=== PATIENT | male | born 1950 | race Caucasian/White ===

== ENCOUNTER → 2016-06-06 | Outpatient (CLI) | payer OTHER ==
[2016-06-06 17:02] LABS: Blood Urea Nitrogen 27 mg/dL (9-20); Non-African American GFR(MDRD) >60 (>60 ml/min/1.73 sqM)
--- NOTE | 2016-06-07 07:44 | CT ---
CT CHEST FOR PULMONARY EMBOLISM. EXAMINATION TYPE: CT angio chest DATE OF EXAM: 06/06/2016 6:04 PM INDICATION: Pt states of sob and chest pain. CT DLP: 404.9 mGycm, Automated exposure control for dose reduction was used. CONTRAST: Patient injected with 90 mL of Omnipaque 300. COMPARISON: NONE TECHNIQUE: CT of the chest is performed on a spiral scan at 2 mm thick sections. Study is performed with intravenous contrast timed for evaluation for pulmonary embolism. This will limit additional po rtions of the evaluation. 3-D MIP images reconstructed by the technologist are reviewed on the compu ter in the coronal and sagittal planes. FINDINGS: No persistent filling defects are evident to suggest an acute pulmonary embolism. No mediastinal or hilar adenopathy enlarged by CT criteria is evident. The ascending aorta diameter at the level of the main pulmonary artery is 3.8 cm. The main pulmonary artery diameter at the bifur cation is 3.0 cm. There appears to be some pleural thickening or some pleural fat in the posterior medial lung apices b ilaterally. Emphysematous changes are evident. Some mild peribronchial thickening may be present cent rally no suspicious masses or infiltrates are evident. There may be an area of pneumonitis just above the left diaphragm. Coronary artery calcification is noted. There is some prominence of the descending thoracic aorta at the level of the right atrium measuring 3.7 cm transverse dimension. Limited CT sections were obtained through the upper abdomen. There is a calcified hypodense area in t he superior posterior left kidney could be calcified cyst. Consider additional evaluation with contra st CT abdomen. Renal mass is not excluded. IMPRESSIONS: 1. No acute pulmonary embolism. 2. Probable calcified cyst on the posterior superior left kidney. Given the calcification, underlying mass should be considered. Contrast CT abdomen is recommended for additional evaluation.
== END ==
LOC: RADCTMAIN 15:56
PROVIDERS: ATTEND Internal Medicine Critical Care Medicine
DX: R06.02 Shortness of breath (principal)
CPT/HCPCS: 82565; 84520; 71275; 36415; Q9967

== ENCOUNTER 2016-06-21 16:23 | Inpatient (IN) | payer MEDICARE ==
[2016-06-21] MEDS ORDERED: IPRATROPIUM 0.5 MG/2.5 ML NEBU INHALATION STA (17:13)
[2016-06-21] MEDS ORDERED: SODIUM CHLORIDE 0.9% 1,000 ML IV STA (17:13)
[2016-06-21] MEDS ORDERED: ALBUTEROL NEBULIZED 2.5 MG/3 ML INHALATION STA (17:13)
[2016-06-21] MEDS ORDERED: LEVOFLOXACIN 750MG-D5W PMX 750 MG in DEXTROSE/WATER 1 150ML.BAG IVPB STA (17:13)
[2016-06-21 17:14] LABS: Glucose,Whole Blood 100 mg/dL (75-99)
--- NOTE | 2016-06-21 17:19 | ED ---
General Adult HPI - General Chief complaint: Shortness of Breath Stated complaint: SOB Time Seen by Provider: 06/21/16 16:26 Source: patient, family, RN notes reviewed, old records reviewed Mode of arrival: EMS Limitations: no limitations - History of Present Illness Initial comments: This is a 65-year-old male ER for evaluation of severe shortness of breath. Patient suffers from COPD CHF and multiple cardiac comorbidities. Patient coming in with severe distress breath went to his family doctor who noted him earlier in the day, patient did have elevated fever, has noted fever and chills at home. Patient's doctor sent him over the the hospital for admission secondary to pneumonia. He had outpatient x-ray and his symptoms are progressing. Patient denies chest pain at this time. Denies recent travel history or known sick contacts, no recent hospitalization - Related Data Home Medications Medication Instructions Recorded Confirmed Albuterol Inhaler [Ventolin Hfa 1 - 2 puff INHALATION RT-QID PRN 06/21/16 Inhaler] Albuterol Nebulized [Ventolin 2.5 mg INHALATION RT-QID PRN 06/21/16 06/21/16 Nebulized] Amitriptyline HCl [Elavil] 50 mg PO HS 06/21/16 06/21/16 Aspirin 81 mg PO DAILY 06/21/16 06/21/16 Atorvastatin [Lipitor] 20 mg PO HS 06/21/16 06/21/16 Budesonide/Formoterol Fumarate 2 puff INHALATION RT-BID 06/21/16 06/21/16 [Symbicort 160-4.5 Mcg Inhaler] Cholecalciferol [Vitamin D3] 2,000 unit PO DAILY 06/21/16 06/21/16 Ergocalciferol (Vitamin D2) 50,000 unit PO FR 06/21/16 06/21/16 [Vitamin D2] Furosemide [Lasix] 20 mg PO DAILY 06/21/16 06/21/16 Insulin Aspart [NovoLOG Flexpen] See Protocol SQ AC-TID 06/21/16 06/21/16 Insulin Detemir [Levemir Flextouch] 28 units SQ HS 06/21/16 06/21/16 Lipase/Protease/Amylase [Creon Dr 1 cap PO QID 06/21/16 06/21/16 24,000 Units Capsule] Losartan Potassium [Cozaar] 50 mg PO DAILY 06/21/16 06/21/16 Metoprolol Tartrate [Lopressor] 50 mg PO BID 06/21/16 06/21/16 Multivitamins, Thera [Multivitamin 1 tab PO DAILY 06/21/16 06/21/16 (formulary)] Nitroglycerin Sl Tabs [Nitrostat] 0.4 mg SUBLINGUAL Q5M PRN 06/21/16 06/21/16 Omeprazole 20 mg PO AC-BRKFST 06/21/16 06/21/16 Pregabalin [Lyrica] 75 mg PO TID 06/21/16 06/21/16 Ranolazine [Ranexa] 1,000 mg PO BID 06/21/16 06/21/16 Tiotropium 18 Mcg/Puff [Spiriva] 1 cap INHALATION RT-DAILY 06/21/16 06/21/16 Zolpidem Tartrate [Ambien] 10 mg PO HS 06/21/16 06/21/16 amLODIPine [Norvasc] 10 mg PO HS 06/21/16 06/21/16 Allergies Allergy/AdvReac Type Severity Reaction Status Date / Time lisinopril Allergy Unknown Verified 06/21/16 17:08 metformin Allergy Unknown Verified 06/21/16 17:08 shellfish derived [Shellfish] Allergy Anaphylaxis Verified 06/21/16 17:08 theodur Allergy Hallucinati Uncoded 06/21/16 16:53 ons Review of Systems ROS Statement: Those systems with pertinent positive or pertinent negative responses have been documented in the HPI. ROS Other: All systems not noted in ROS Statement are negative. Past Medical History Past Medical History: Coronary Artery Disease (CAD), Heart Failure, COPD, Diabetes Mellitus, Hearing Disorder / Deafness, Hyperlipidemia, Hypertension, Pneumonia, Syncope Additional Past Medical History / Comment(s): RBBB, diastolic heart failure, AAA , pancreatic enzyme insufficiency, Agent [place] exposure, diabetic neuropathy History of Any Multi-Drug Resistant Organisms: None Reported Additional Past Surgical History / Comment(s): pancreatic cyst removal 2004, AAA repair 2005 Past Psychological History: Anxiety, PTSD Smoking Status: Former smoker Past Alcohol Use History: None Reported Past Drug Use History: None Reported General Exam Limitations: no limitations General appearance: alert, anxious, in distress, obese Head exam: Present: atraumatic, normocephalic, normal inspection Eye exam: Present: normal appearance, PERRL, EOMI. Absent: scleral icterus, conjunctival injection, periorbital swelling ENT exam: Present: normal exam, mucous membranes dry, mucous membranes moist Neck exam: Present: normal inspection. Absent: tenderness, meningismus, lymphadenopathy Respiratory exam: Present: respiratory distress, wheezes, accessory muscle use, decreased breath sounds, prolonged expiratory. Absent: rales, rhonchi, stridor Cardiovascular Exam: Present: regular rate, normal rhythm, normal heart sounds. Absent: systolic murmur, diastolic murmur, rubs, gallop, clicks GI/Abdominal exam: Present: soft, normal bowel sounds. Absent: distended, tenderness, guarding, rebound, rigid Extremities exam: Present: normal inspection, full ROM, normal capillary refill. Absent: tenderness, pedal edema, joint swelling, calf tenderness Back exam: Present: normal inspection Neurological exam: Present: alert, oriented X3, CN II-XII intact Psychiatric exam: Present: normal affect, normal mood Skin exam: Present: warm, dry, intact, normal color. Absent: rash Course Vital Signs 06/21/16 16:44 Temperature 98.9 F Pulse Rate 86 Respiratory 24 Rate Blood Pressure 114/67 O2 Sat by Pulse 89 L Oximetry - Reevaluation(s) Reevaluation #1: 06/21/16 17:44 Patient is improved with fever control symptom control EKG Findings - EKG Comments: EKG Findings:: EKG shows sinus rhythm rate of 85, NC 140, QRS 122, QTC 476 Medical Decision Making - Medical Decision Making 65 middle-ear for evaluation of shortness of breath severe shortness of breath up with family doctor for possible pneumonia Megan K by CHF and COPD. Patient be admitted for both pulmonary and cardiac observation, IV antibiotics breathing treatments and further monitoring of cardiopulmonary status - Lab Data Result diagrams: 06/21/16 16:55 06/21/16 16:55 Lab Results 06/21/16 06/21/16 06/21/16 Range/Units 16:55 16:55 16:55 WBC 19.3 H (3.8-10.6) k/uL RBC 4.70 (4.30-5.90) m/uL Hgb 14.6 (13.0-17.5) gm/dL Hct 43.8 (39.0-53.0) % MCV 93.2 (80.0-100.0) fL MCH 31.1 (25.0-35.0) pg MCHC 33.4 (31.0-37.0) g/dL RDW 14.1 (11.5-15.5) % Plt Count 209 (150-450) k/uL Neutrophils % 86 % Lymphocytes % 6 % Monocytes % 3 % Eosinophils % 1 % Basophils % 1 % Neutrophils # 16.5 H (1.3-7.7) k/uL Lymphocytes # 1.2 (1.0-4.8) k/uL Monocytes # 0.6 (0-1.0) k/uL Eosinophils # 0.2 (0-0.7) k/uL Basophils # 0.2 (0-0.2) k/uL PT 11.0 (9.0-12.0) sec INR 1.1 (<1.1) APTT 23.7 (22.0-30.0) sec Sodium 139 (137-145) mmol/L Potassium 4.3 (3.5-5.1) mmol/L Chloride 104 (98-107) mmol/L Carbon Dioxide 25 (22-30) mmol/L Anion Gap 10 mmol/L BUN 14 (9-20) mg/dL Creatinine 1.19 (0.66-1.25) mg/dL Est GFR (MDRD) Af Amer >60 (>60 ml/min/1.73 sqM) Est GFR (MDRD) Non-Af >60 (>60 ml/min/1.73 sqM) Glucose 104 H (74-99) mg/dL POC Glucose (mg/dL) (75-99) mg/dL POC Glu Heat Treat Inspector ID Calcium 8.9 (8.4-10.2) mg/dL Magnesium 1.7 (1.6-2.3) mg/dL Total Bilirubin 0.9 (0.2-1.3) mg/dL AST 18 (17-59) U/L ALT 41 (21-72) U/L Alkaline Phosphatase 84 (38-126) U/L Total Protein 6.1 L (6.3-8.2) g/dL Albumin 3.2 L (3.5-5.0) g/dL 06/21/16 Range/Units 17:12 WBC (3.8-10.6) k/uL RBC (4.30-5.90) m/uL Hgb (13.0-17.5) gm/dL Hct (39.0-53.0) % MCV (80.0-100.0) fL MCH (25.0-35.0) pg MCHC (31.0-37.0) g/dL RDW (11.5-15.5) % Plt Count (150-450) k/uL Neutrophils % % Lymphocytes % % Monocytes % % Eosinophils % % Basophils % % Neutrophils # (1.3-7.7) k/uL Lymphocytes # (1.0-4.8) k/uL Monocytes # (0-1.0) k/uL Eosinophils # (0-0.7) k/uL Basophils # (0-0.2) k/uL PT (9.0-12.0) sec INR (<1.1) APTT (22.0-30.0) sec Sodium (137-145) mmol/L Potassium (3.5-5.1) mmol/L Chloride (98-107) mmol/L Carbon Dioxide (22-30) mmol/L Anion Gap mmol/L BUN (9-20) mg/dL Creatinine (0.66-1.25) mg/dL Est GFR (MDRD) Af Amer (>60 ml/min/1.73 sqM) Est GFR (MDRD) Non-Af (>60 ml/min/1.73 sqM) Glucose (74-99) mg/dL POC Glucose (mg/dL) 100 H (75-99) mg/dL POC Glu Heat Treat Inspector ID Ezequiel Traylor Calcium (8.4-10.2) mg/dL Magnesium (1.6-2.3) mg/dL Total Bilirubin (0.2-1.3) mg/dL AST (17-59) U/L ALT (21-72) U/L Alkaline Phosphatase (38-126) U/L Total Protein (6.3-8.2) g/dL Albumin (3.5-5.0) g/dL - Radiology Data Radiology results: report reviewed (Chest x-ray positive for pneumonia CHF), image reviewed Critical Care Time Critical Care Time: Yes Total Critical Care Time: 31 Disposition Clinical Impression: Acute respiratory failure, Acute exacerbation of chronic obstructive airways disease, Community acquired pneumonia, Congestive heart failure, Hypoxia Disposition: ADMITTED IP TO THIS HOSP Condition: Serious Referrals: Bam Urrutia MD [Primary Care Provider] - 1-2 days
[2016-06-21 17:26] LABS: Basophils # (A) 0.2 k/uL (0-0.2); Basophils % (A) 1 %; CH 31.4; CHCM 33.9; Eosinophils # (A) 0.2 k/uL (0-0.7); Eosinophils % (A) 1 %; HCT 43.8 % (39.0-53.0); HDW 2.62; HGB 14.6 gm/dL (13.0-17.5); Luc # (Auto) 0.46; Luc % (Auto) 2; Lymphocytes # (A) 1.2 k/uL (1.0-4.8); Lymphocytes % (A) 6 %; MCH 31.1 pg (25.0-35.0); MCHC 33.4 g/dL (31.0-37.0); MCV 93.2 fL (80.0-100.0); Mean Platelet Volume 8.2; Monocytes # (A) 0.6 k/uL (0-1.0); Monocytes % (A) 3 %; Neutrophils # (A) 16.5 k/uL (1.3-7.7); Neutrophils % (A) 86 %; RDW 14.1 % (11.5-15.5); WBC 19.3 k/uL (3.8-10.6); WBC (Perox) 19.92
[2016-06-21 17:33] LABS: INR 1.1 (<1.1); Partial Thromboplastin Time 23.7 sec (22.0-30.0)
[2016-06-21 17:36] LABS: ALT 41 U/L (21-72); AST 18 U/L (17-59); Alkaline Phosphatase 84 U/L (38-126); Anion Gap 10 mmol/L; Blood Urea Nitrogen 14 mg/dL (9-20); Calcium 8.9 mg/dL (8.4-10.2); Carbon Dioxide 25 mmol/L (22-30); Chloride 104 mmol/L (98-107); Glucose 104 mg/dL (74-99); Magnesium 1.7 mg/dL (1.6-2.3); Non-African American GFR(MDRD) >60 (>60 ml/min/1.73 sqM); Potassium 4.3 mmol/L (3.5-5.1); Sodium 139 mmol/L (137-145); Total Bilirubin 0.9 mg/dL (0.2-1.3); Total Protein 6.1 g/dL (6.3-8.2)
[2016-06-21] MEDS ORDERED: PNEUMONIA PROTOCOL UTILIZED 1 EACH MISC PO PRN (17:41)
[2016-06-21 17:44] LABS: Creatine Kinase 28 U/L (55-170)
[2016-06-21 17:57] LABS: Creatine Kinase MB 0.8 ng/mL (0.0-2.4); Troponin I <0.012 ng/mL (0.000-0.034)
[2016-06-21] MEDS: SODIUM CHLORIDE 0.9% 1,000 ML IV SCH (18:05)
--- NOTE | 2016-06-21 18:31 | XR ---
EXAMINATION TYPE: XR chest 1V portable DATE OF EXAM: 06/21/2016 6:25 PM COMPARISON: NONE HISTORY: Short of breath TECHNIQUE: Single frontal view of the chest is obtained. FINDINGS: There is mild interstitial infiltrate in the right lower lobe. There is no heart failure. Heart size is normal. There are chest leads. There is no evidence of pleural effusion. IMPRESSION: There is a new patchy infiltrate in the right lower lobe compared to the CT scan of 2016. No heart failure. Normal heart.
[2016-06-21] MEDS: IPRATROPIUM-ALBUTEROL 3 ML NEB INHALATION SCH (19:03)
[2016-06-21 19:22] VITALS: BMI 27.6
[2016-06-21 20:05] LABS: Hemoglobin A1C 7.8 % (4.2-6.1)
[2016-06-21] MEDS: LIPASE 5,000/PROTEASE 17,000/AMYLASE 27,0000 PO SCH (21:17)
[2016-06-21] MEDS: INSULIN LISPRO (humaLOG) 300 UNIT/3 ML VIAL SQ SCH (21:17)
[2016-06-21] MEDS: PREGABALIN 75 MG CAP PO SCH (21:17)
[2016-06-21] MEDS: RANOLAZINE 500 MG TAB.ER.12H PO SCH (21:17)
[2016-06-21 21:19] LABS: Glucose,Whole Blood 136 mg/dL (75-99)
[2016-06-21] MEDS: amLODIPine 10 MG TAB PO SCH (23:56)
[2016-06-21] MEDS: AMITRIPTYLINE HCL 50 MG TAB PO SCH (23:56)
[2016-06-21] MEDS: METOPROLOL TARTRATE 50 MG TAB PO SCH (23:56)
[2016-06-21] MEDS: ATORVASTATIN 20 MG TAB PO SCH (23:57)
[2016-06-21] MEDS: ZOLPIDEM 10 MG TAB PO SCH (23:57)
[2016-06-22] MEDS: SODIUM CHLORIDE 0.9% 1,000 ML IV SCH ×3 (04:45→23:32)
--- NOTE | 2016-06-22 07:16 | XR ---
EXAMINATION TYPE: XR chest 2V DATE OF EXAM: 06/22/2016 7:08 AM COMPARISON: Chest x-ray from yesterday. HISTORY: Pneumonia progress study TECHNIQUE: Frontal and lateral views of the chest are obtained. FINDINGS: There is chronic parenchymal change with persistent right basilar opacity felt improved. No new focal airspace opacity, pleural effusion, or pneumothorax is seen bilaterally. The cardiac delicia houette size is within normal limits. The osseous structures are intact. IMPRESSION: Chronic parenchymal change with improving but persistent right basilar infiltrate, no ne w infiltrate is seen.
[2016-06-22 07:57] LABS: Glucose,Whole Blood 179 mg/dL (75-99)
[2016-06-22] MEDS: LOSARTAN 50 MG TAB PO SCH (07:59)
[2016-06-22] MEDS: ASPIRIN 81 MG CHEW PO SCH (07:59)
[2016-06-22] MEDS: PREGABALIN 75 MG CAP PO SCH ×3 (07:59→21:34)
[2016-06-22] MEDS: RANOLAZINE 500 MG TAB.ER.12H PO SCH ×2 (07:59→21:34)
[2016-06-22] MEDS: FUROSEMIDE 20 MG TAB PO SCH (07:59)
[2016-06-22] MEDS: PANTOPRAZOLE 40 MG TABLET PO SCH (07:59)
[2016-06-22] MEDS: ENOXAPARIN 40 MG/0.4 ML SYRINGE SQ SCH (07:59)
[2016-06-22] MEDS: INSULIN LISPRO (humaLOG) 300 UNIT/3 ML VIAL SQ SCH ×4 (08:02→21:33)
[2016-06-22] MEDS: SYMBICORT 160-4.5 MCG INHALER INHALATION SCH ×2 (08:09→19:09)
[2016-06-22] MEDS: IPRATROPIUM-ALBUTEROL 3 ML NEB INHALATION SCH ×4 (08:09→19:10)
[2016-06-22] MEDS: TIOTROPIUM 18 MCG/PUFF INHALER INHALATION SCH (08:09)
[2016-06-22] MEDS ORDERED: CREON 24,000 UNITS PO PRN (08:40)
[2016-06-22] MEDS ORDERED: IBUPROFEN 600 MG TAB PO SCH (09:00)
[2016-06-22] MEDS: LIPASE 5,000/PROTEASE 17,000/AMYLASE 27,0000 PO SCH (09:59)
[2016-06-22 12:00] LABS: Glucose,Whole Blood 269 mg/dL (75-99)
[2016-06-22] MEDS: CREON 24,000 UNITS PO SCH ×2 (12:20→17:47)
[2016-06-22] MEDS: METOPROLOL TARTRATE 50 MG TAB PO SCH ×2 (12:21→23:32)
[2016-06-22] MEDS: CHOLECALCIFEROL 1,000 UNIT TAB PO SCH (12:21)
[2016-06-22] MEDS ORDERED: IBUPROFEN 600 MG TAB PO PRN (12:25)
--- NOTE | 2016-06-22 12:49 | P.CNPUL ---
History of Present Illness Consult date: 06/22/16 Reason for consult: COPD History of present illness: 65-year-old male patient, known history of COPD, whereas been followed up in our office on a routine basis regarding his COPD and maintained on a combination of Spiriva, Symbicort and Proventil rescue inhaler. The patient was recently seen by Dr. Serrano and he was told that his condition was stable. The day following his evaluation, the patient spiked a fever of 103 and he woke up any shaky and having cold chills. Following that he started having some minimal cough and progressive shortness of breath. He was seen at Dr. Hair's office where he was found to have a pulse ox in the low 80s and that point an ambulance was called and the patient got moved to the emergency department at [facility] for further evaluation and treatment. Chest x-ray confirmed the presence of right lung pneumonia. The patient was given a dose of Levaquin in the emergency department. He is already feeling better this morning. He is white cell count was elevated at 19.3. His subsequent chest x- ray from today shows improving but persistent right basilar pulmonary infiltrate and there is no new abnormalities seen. No change in mental status. No hemoptysis. He is an ex-smoker. No chest pain. No swelling lower extremities. No travel history. No sick contacts. Sputum Gram stain and cultures to follow. Influenza screen was negative. Review of Systems further review of system was done and the positive findings are almost above in history of present illness Past Medical History Past Medical History: Coronary Artery Disease (CAD), Heart Failure, COPD, Diabetes Mellitus, Hearing Disorder / Deafness, Hyperlipidemia, Hypertension, Pneumonia, Syncope Additional Past Medical History / Comment(s): COPD moderate in severity, coronary artery disease with nonocclusive disease based on previous cardiac catheterization, diabetes mellitus, abdominal aortic aneurysm that has been repaired surgically at [facility] in [place], diabetic peripheral neuropathy, diabetes mellitus maintained on insulin outpatient basis, hypertension, hyperlipidemia, hearing impairment, CHF with diastolic dysfunction , right bundle branch block pattern on his EKG, exposure to agent orange, 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 History of Any Multi-Drug Resistant Organisms: None Reported Additional Past Surgical History / Comment(s): pancreatic cyst removal 2004, AAA repair 2005 Past Anesthesia/Blood Transfusion Reactions: No Reported Reaction Past Psychological History: Anxiety, PTSD Smoking Status: Former smoker Past Alcohol Use History: None Reported Past Drug Use History: None Reported Medications and Allergies Home Medications Medication Instructions Recorded Confirmed Type Albuterol Inhaler [Ventolin Hfa 1 - 2 puff INHALATION RT-QID PRN 06/21/16 History Inhaler] Albuterol Nebulized [Ventolin 2.5 mg INHALATION RT-QID PRN 06/21/16 06/21/16 History Nebulized] Amitriptyline HCl [Elavil] 50 mg PO HS 06/21/16 06/21/16 History Aspirin 81 mg PO DAILY 06/21/16 06/21/16 History Atorvastatin [Lipitor] 20 mg PO HS 06/21/16 06/21/16 History Budesonide/Formoterol Fumarate 2 puff INHALATION RT-BID 06/21/16 06/21/16 History [Symbicort 160-4.5 Mcg Inhaler] Cholecalciferol [Vitamin D3] 2,000 unit PO DAILY 06/21/16 06/21/16 History Ergocalciferol (Vitamin D2) 50,000 unit PO FR 06/21/16 06/21/16 History [Vitamin D2] Furosemide [Lasix] 20 mg PO DAILY 06/21/16 06/21/16 History Insulin Aspart [NovoLOG Flexpen] See Protocol SQ AC-TID 06/21/16 06/21/16 History Insulin Detemir [Levemir Flextouch] 28 units SQ HS 06/21/16 06/21/16 History Lipase/Protease/Amylase [Sergio Dr 1 cap PO QID 06/21/16 06/21/16 History 24,000 Units Capsule] Losartan Potassium [Cozaar] 50 mg PO DAILY 06/21/16 06/21/16 History Metoprolol Tartrate [Lopressor] 50 mg PO BID 06/21/16 06/21/16 History Multivitamins, Thera [Multivitamin 1 tab PO DAILY 06/21/16 06/21/16 History (formulary)] Nitroglycerin Sl Tabs [Nitrostat] 0.4 mg SUBLINGUAL Q5M PRN 06/21/16 06/21/16 History Omeprazole 20 mg PO AC-BRKFST 06/21/16 06/21/16 History Pregabalin [Lyrica] 75 mg PO TID 06/21/16 06/21/16 History Ranolazine [Ranexa] 1,000 mg PO BID 06/21/16 06/21/16 History Tiotropium 18 Mcg/Puff [Spiriva] 1 cap INHALATION RT-DAILY 06/21/16 06/21/16 History Zolpidem Tartrate [Ambien] 10 mg PO HS 06/21/16 06/21/16 History amLODIPine [Norvasc] 10 mg PO HS 06/21/16 06/21/16 History Allergies Allergy/AdvReac Type Severity Reaction Status Date / Time lisinopril Allergy Unknown Verified 06/21/16 17:08 metformin Allergy Unknown Verified 06/21/16 17:08 shellfish derived [Shellfish] Allergy Anaphylaxis Verified 06/21/16 17:08 theodur Allergy Hallucinati Uncoded 06/21/16 16:53 ons Physical Exam Vitals: Vital Signs Temp Pulse Pulse Resp BP BP Pulse Ox 06/22/16 12:07 80 06/22/16 12:00 72 06/22/16 08:20 84 06/22/16 08:13 80 06/22/16 07:00 97.6 F 86 20 126/74 92 L 06/21/16 23:00 98.7 F 88 18 140/77 94 L 06/21/16 19:20 92 06/21/16 19:04 88 06/21/16 18:53 98.4 F 85 17 115/68 91 L 06/21/16 18:07 98.6 F 87 18 98/62 92 L Intake and Output 06/21/16 06/22/16 06/22/16 22:59 06:59 14:59 Intake Total 100 240 Balance 100 240 Intake: Amount of Fluid Infused ( 100 ml) Oral 240 Other: Voiding Method Toilet # Voids 1 3 Weight 95 kg 135 kg Head exam was generally normal. There was no scleral icterus or corneal arcus. Mucous membranes were moist.Neck was supple and without jugular venous distension, thyromegaly, or carotid bruits. Carotids were easily palpable bilaterally. There was no adenopathy. Lung sounds are diminished bilaterally along with some minimal expiratory wheezes and crackles in the right lung base.Cardiac exam revealed the PMI to be normally situated and sized. The rhythm was regular and no extrasystoles were noted during several minutes of auscultation. The first and second heart sounds were normal and physiologic splitting of the second heart sound was noted. There were no murmurs, rubs, clicks, or gallops.Abdominal exam revealed normal bowel sounds. The abdomen was soft, non-tender, and without masses, organomegaly, or appreciable enlargement of the abdominal aorta.Examination of the extremities revealed easily palpable radial, femoral and pedal pulses. There was no cyanosis, clubbing or edema. Results - Laboratory Findings CBC and BMP: 06/21/16 16:55 06/21/16 16:55 PT/INR, D-dimer PT 11.0 sec (9.0-12.0) 06/21/16 16:55 INR 1.1 (<1.1) 06/21/16 16:55 Abnormal lab findings: Abnormal Labs 06/21/16 06/21/16 06/22/16 18:53 20:59 07:23 POC Glucose (mg/dL) 136 H 179 H Hemoglobin A1c 7.8 H 06/22/16 11:57 POC Glucose (mg/dL) 269 H Hemoglobin A1c - Diagnostic Findings Chest x-ray: image reviewed Assessment and Plan Plan: Assessment 1 acute community acquired right lower lobe pneumonia 2 COPD exacerbation secondary to above 3 acute febrile illness secondary to above 4 leukocytosis, secondary to above 5 coronary artery disease 6 diabetes mellitus 7 hypertension 8 hyperlipidemia 9 aortic aneurysm that has been repaired surgically Plan Continue with IV Levaquin. Obtain sputum Gram stain and culture. Repeat chest x-ray in a.m. Continue bronchodilators. Monitor white cell count. Monitor blood cultures. We'll continue to follow. Condition is stable.
[2016-06-22] MEDS: LEVOFLOXACIN 750MG-D5W PMX 750 MG in DEXTROSE/WATER 1 150ML.BAG IVPB SCH (13:25)
[2016-06-22 17:40] LABS: Glucose,Whole Blood 255 mg/dL (75-99)
[2016-06-22 21:12] LABS: Glucose,Whole Blood 304 mg/dL (75-99)
--- NOTE | 2016-06-22 21:13 | HP ---
DATE OF SERVICE: 06/22/2016 DATE OF ADMISSION: 06/21/2016 CHIEF COMPLAINT: Difficulty in breathing. HISTORY OF PRESENT ILLNESS: Mr. Paul is a 65-year-old male with a past medical history of coronary artery disease, COPD, diabetes mellitus, hypertension, hyperlipidemia, who was admitted to the hospital for worsening shortness of breath. The patient was seen at Dr. Urrutia's office yesterday, when he was complaining of difficulty in breathing and his pulse ox was found to be in the lower 80s. He was sent into the ED for further evaluation and treatment. Patient did get a chest x-ray in the ED which confirmed right basilar lung infiltrate. He is being currently treated for pneumonia. Patient states that he has had significant improvement in his symptoms of difficulty in breathing since coming into the hospital. The patient denies having any cough or chest pain. Denied having any fevers. Patient did smoke for more than 30 years but quit 15 years back. He has gold stage II COPD. No history of sick contacts or recent travel. REVIEW OF SYSTEMS: All 13 review of systems are done and negative except for ones mentioned in the HPI. PAST MEDICAL HISTORY: Significant for coronary artery disease, COPD, diabetes mellitus, hypertension, hyperlipidemia. ALLERGIES: LISINOPRIL, METFORMIN, SHELLFISH, THEODUR. HOME MEDICATIONS: 1. Albuterol nebulizations. 2. Symbicort 160/4.5, 2 puffs b.i.d. 3. Multivitamin. 4. Lantus 8 units at bedtime. 5. Vitamin D2, 50,000 units once a week. 6. Vitamin D3, 2000 units p.o. daily. 7. Amlodipine 10 mg p.o. bedtime. 8. Ambien 10 mg p.o. bedtime. 9. Lipitor 20 mg p.o. bedtime. 10. Elavil 50 mg p.o. bedtime. 11. Lyrica 7.5 mg daily. 12. Lopressor 50 mg p.o. b.i.d. 13. NovoLog sliding scale. 14. Omeprazole 20 mg with breakfast. 15. Lasix 20 mg p.o. daily. 16. Aspirin 81 mg p.o. daily. 17. Xanax 1000 mg p.o. b.i.d. 18. Losartan 50 mg p.o. daily. 19. Creon 1 capsule p.o. q.i.d. 20. Nitrostat 0.4 mg sublingual tablets every 5 minutes p.r.n. for chest pain. SOCIAL HISTORY: Former smoker, quit 15 years back. Alcohol occasional use. FAMILY HISTORY: Positive for hypertension. PAST SURGICAL HISTORY: Positive for pancreatic cyst removal in 2004, AAA repair in 2005. On examination, patient's vitals are temperature 97, heart rate 83, respirations 20, blood pressure 190/73, saturating at 96% on room air. GENERAL EXAMINATION: Patient appears to be in no acute distress. HEAD: Atraumatic, normocephalic. EYES: Pupils equal, reactive to light. NECK: No JVD. No lymph node enlargement. HEART: S1 and S2 heard. LUNGS: Bilateral breath sounds are positive. A few coarse breath sounds heard. No crackles. GI: Abdomen is soft, nontender. Bowel sounds are positive. EXTREMITIES: No edema. No clubbing. GLOBAL REGULATORY LEAD: Alert, awake, oriented x3. No focal neurological deficits. PSYCHIATRIC: Appropriate mood and affect. SKIN: No rashes. MUSCULOSKELETAL: No joint swelling or deformity. Patient's labs from yesterday, white count of 19.3, hemoglobin 14.6, platelets 209. Sodium 139, potassium 4.3, chloride 104, bicarb 25, BUN 14, creatinine 1.19, hemoglobin A1c of 7.8. AST 18, ALT 41, albumin 3.2. Negative for influenza. The patient had a chest x-ray showing right basilar infiltrate. ASSESSMENT AND PLAN: 1. Community-acquired pneumonia, right lower lobe. 2. Acute exacerbation of chronic obstructive pulmonary disease secondary to #1. 3. History of coronary artery disease. 4. Type 2 diabetes mellitus, insulin-dependent, with A1c of 7.2. 5. Hypertension. 6. Hyperlipidemia. 7. History of aortic aneurysm repair in 2005. 8. History of pancreatic cyst removal in the past. PLAN: The plan is to continue the patient on bronchodilators, IV antibiotics, and IV steroids. Will follow up on the sputum Gram stain cultures. We will continue with the rest of his home medication regimen. Further recommendations to follow depending on the progress of the patient. [facility]ITAL[facility]
[2016-06-22] MEDS: ATORVASTATIN 20 MG TAB PO SCH (23:33)
[2016-06-22] MEDS: amLODIPine 10 MG TAB PO SCH (23:33)
[2016-06-22] MEDS: AMITRIPTYLINE HCL 50 MG TAB PO SCH (23:33)
[2016-06-22] MEDS: ZOLPIDEM 10 MG TAB PO SCH (23:35)
[2016-06-23 07:43] LABS: Glucose,Whole Blood 203 mg/dL (75-99)
[2016-06-23] MEDS: IPRATROPIUM-ALBUTEROL 3 ML NEB INHALATION SCH ×4 (07:53→19:08)
[2016-06-23] MEDS: SYMBICORT 160-4.5 MCG INHALER INHALATION SCH ×4 (07:55→19:17)
[2016-06-23] MEDS: TIOTROPIUM 18 MCG/PUFF INHALER INHALATION SCH ×2 (08:04→11:51)
--- NOTE | 2016-06-23 08:08 | XR ---
EXAMINATION TYPE: XR chest 1V DATE OF EXAM: 06/23/2016 6:52 AM COMPARISON: Prior chest x-ray 22 June 2016 HISTORY: Pneumonia, COPD, coronary artery disease TECHNIQUE: Single frontal view of the chest is obtained. FINDINGS: Airspace disease persists in the right lower lobe. No pneumothorax or evident effusion. Ca rdiac mediastinal silhouette, pulmonary vascularity and marli are stable. IMPRESSION: Correlate for pneumonia
[2016-06-23] MEDS: INSULIN LISPRO (humaLOG) 300 UNIT/3 ML VIAL SQ SCH ×4 (08:19→22:06)
[2016-06-23] MEDS: CREON 24,000 UNITS PO SCH ×3 (08:20→17:26)
[2016-06-23] MEDS: ASPIRIN 81 MG CHEW PO SCH (08:20)
[2016-06-23] MEDS: LOSARTAN 50 MG TAB PO SCH (08:20)
[2016-06-23] MEDS: ENOXAPARIN 40 MG/0.4 ML SYRINGE SQ SCH (08:20)
[2016-06-23] MEDS: PANTOPRAZOLE 40 MG TABLET PO SCH (08:20)
[2016-06-23] MEDS: FUROSEMIDE 20 MG TAB PO SCH (08:20)
[2016-06-23] MEDS: PREGABALIN 75 MG CAP PO SCH ×3 (08:21→22:07)
[2016-06-23] MEDS: RANOLAZINE 500 MG TAB.ER.12H PO SCH ×2 (08:21→22:07)
[2016-06-23 11:28] LABS: Aty Lym Flag Slight; CH 31.2; CHCM 33.6; HCT 39.8 % (39.0-53.0); HDW 2.65; MCH 30.5 pg (25.0-35.0); MCHC 32.7 g/dL (31.0-37.0); MCV 93.2 fL (80.0-100.0); Mean Platelet Volume 7.9; RBC 4.27 m/uL (4.30-5.90); WBC 7.5 k/uL (3.8-10.6); WBC (Perox) 7.99
[2016-06-23 11:34] LABS: Anion Gap 7 mmol/L; Blood Urea Nitrogen 13 mg/dL (9-20); Calcium 8.5 mg/dL (8.4-10.2); Carbon Dioxide 27 mmol/L (22-30); Chloride 103 mmol/L (98-107); Glucose 231 mg/dL (74-99); Non-African American GFR(MDRD) >60 (>60 ml/min/1.73 sqM); Potassium 4.5 mmol/L (3.5-5.1); Sodium 137 mmol/L (137-145)
[2016-06-23 11:48] LABS: Add Differential Manual Differential
[2016-06-23 11:49] LABS: Manual Review Performed; Nucleated Red Blood Cells 0 /100 WBC (0-0); Total Cells Counted 100
[2016-06-23 11:59] LABS: Glucose,Whole Blood 228 mg/dL (75-99)
[2016-06-23] MEDS: CHOLECALCIFEROL 1,000 UNIT TAB PO SCH (12:12)
[2016-06-23] MEDS: METOPROLOL TARTRATE 50 MG TAB PO SCH (12:12)
--- NOTE | 2016-06-23 13:30 | P.PN ---
Subjective 65-year-old male patient, known history of COPD, whereas been followed up in our office on a routine basis regarding his COPD and maintained on a combination of Spiriva, Symbicort and Proventil rescue inhaler. The patient was recently seen by Dr. Serrano and he was told that his condition was stable. The day following his evaluation, the patient spiked a fever of 103 and he woke up any shaky and having cold chills. Following that he started having some minimal cough and progressive shortness of breath. He was seen at Dr. Hair's office where he was found to have a pulse ox in the low 80s and that point an ambulance was called and the patient got moved to the emergency department at [facility] for further evaluation and treatment. Chest x-ray confirmed the presence of right lung pneumonia. The patient was given a dose of Levaquin in the emergency department. He is already feeling better this morning. He is white cell count was elevated at 19.3. His subsequent chest x- ray from today shows improving but persistent right basilar pulmonary infiltrate and there is no new abnormalities seen. No change in mental status. No hemoptysis. He is an ex-smoker. No chest pain. No swelling lower extremities. No travel history. No sick contacts. Sputum Gram stain and cultures to follow. Influenza screen was negative. On 06/23/2016, the patient is feeling better. He is less short of breath. There is been some slight improvement in the right lower lobe pulmonary infiltration. No sweating. No fever or chills. Remains on broad-spectrum antibiotics. Cultures of been all negative. No chest pain. No swelling lower extremities. Still on bronchodilators. Receiving systemic steroids. Objective - Vital Signs Vital signs: Vital Signs Temp 97.4 F L 06/23/16 07:00 Pulse 88 06/23/16 12:03 Resp 16 06/23/16 07:00 BP 119/73 06/23/16 07:00 Pulse Ox 91 L 06/23/16 07:00 Intake & Output 06/22/16 06/23/16 06/23/16 18:59 06:59 18:59 Intake Total 440 800 500 Balance 440 800 500 Weight 132 kg Intake: Intake, IV Titration 800 Amount Sodium Chloride 0.9% 1, 800 000 ml @ 100 mls/hr IV . Q10H DELGADO Rx#:[id number] Oral 440 500 Other: # Voids 2 1 - Exam Head exam was generally normal. There was no scleral icterus or corneal arcus. Mucous membranes were moist.Neck was supple and without jugular venous distension, thyromegaly, or carotid bruits. Carotids were easily palpable bilaterally. There was no adenopathy. Lung sounds are diminished bilaterally along with some minimal expiratory wheezes and crackles in the right lung base.Cardiac exam revealed the PMI to be normally situated and sized. The rhythm was regular and no extrasystoles were noted during several minutes of auscultation. The first and second heart sounds were normal and physiologic splitting of the second heart sound was noted. There were no murmurs, rubs, clicks, or gallops.Abdominal exam revealed normal bowel sounds. The abdomen was soft, non-tender, and without masses, organomegaly, or appreciable enlargement of the abdominal aorta.Examination of the extremities revealed easily palpable radial, femoral and pedal pulses. There was no cyanosis, clubbing or edema. - Labs CBC & Chem 7: 06/23/16 10:50 06/23/16 10:50 Labs: Abnormal Lab Results - Last 24 Hours (Table) 06/22/16 06/22/16 06/23/16 Range/Units 17:20 21:06 07:29 RBC (4.30-5.90) m/uL Glucose (74-99) mg/dL POC Glucose (mg/dL) 255 H 304 H 203 H (75-99) mg/dL 06/23/16 06/23/16 06/23/16 Range/Units 10:50 10:50 11:57 RBC 4.27 L (4.30-5.90) m/uL Glucose 231 H (74-99) mg/dL POC Glucose (mg/dL) 228 H (75-99) mg/dL Microbiology - Last 24 Hours (Table) 06/21/16 18:00 Blood Culture - Preliminary Blood No Growth after 24 hours Assessment and Plan Plan: Assessment 1 acute community acquired right lower lobe pneumonia, improving 2 COPD exacerbation secondary to above LA improving 3 acute febrile illness secondary to above, currently afebrile 4 leukocytosis, secondary to above, improving and the lites are coming down to 7.5 5 coronary artery disease 6 diabetes mellitus 7 hypertension 8 hyperlipidemia 9 aortic aneurysm that has been repaired surgically Plan Continue with IV Levaquin. Chest x-ray is improving. Start the patient on prednisone burst taper. Continue Levaquin. Ablate the patient the hallway. We 'll follow.
[2016-06-23] MEDS: LEVOFLOXACIN 750MG-D5W PMX 750 MG in DEXTROSE/WATER 1 150ML.BAG IVPB SCH (13:31)
[2016-06-23] MEDS: SODIUM CHLORIDE 0.9% 1,000 ML IV SCH (14:08)
[2016-06-23] MEDS: predniSONE 10 MG TAB PO SCH (16:32)
[2016-06-23 17:30] LABS: Glucose,Whole Blood 276 mg/dL (75-99)
[2016-06-23 21:20] LABS: Glucose,Whole Blood 227 mg/dL (75-99)
[2016-06-24] MEDS: ATORVASTATIN 20 MG TAB PO SCH (00:19)
[2016-06-24] MEDS: AMITRIPTYLINE HCL 50 MG TAB PO SCH (00:19)
[2016-06-24] MEDS: METOPROLOL TARTRATE 50 MG TAB PO SCH ×2 (00:19→11:29)
[2016-06-24] MEDS: amLODIPine 10 MG TAB PO SCH (00:19)
[2016-06-24] MEDS: ZOLPIDEM 10 MG TAB PO SCH (00:21)
[2016-06-24] MEDS: IPRATROPIUM-ALBUTEROL 3 ML NEB INHALATION SCH ×4 (07:36→19:31)
[2016-06-24] MEDS: SYMBICORT 160-4.5 MCG INHALER INHALATION SCH ×2 (07:36→19:31)
[2016-06-24] MEDS: TIOTROPIUM 18 MCG/PUFF INHALER INHALATION SCH (07:36)
[2016-06-24] MEDS: INSULIN LISPRO (humaLOG) 300 UNIT/3 ML VIAL SQ SCH ×4 (07:41→22:00)
[2016-06-24] MEDS: PANTOPRAZOLE 40 MG TABLET PO SCH (07:41)
[2016-06-24] MEDS: CREON 24,000 UNITS PO SCH ×3 (07:42→17:17)
[2016-06-24 07:54] LABS: Glucose,Whole Blood 245 mg/dL (75-99)
[2016-06-24] MEDS: predniSONE 10 MG TAB PO SCH (08:11)
[2016-06-24] MEDS: RANOLAZINE 500 MG TAB.ER.12H PO SCH ×2 (08:11→22:01)
[2016-06-24] MEDS: FUROSEMIDE 20 MG TAB PO SCH (08:11)
[2016-06-24] MEDS: PREGABALIN 75 MG CAP PO SCH ×3 (08:11→22:01)
[2016-06-24] MEDS: ASPIRIN 81 MG CHEW PO SCH (08:12)
[2016-06-24] MEDS: ENOXAPARIN 40 MG/0.4 ML SYRINGE SQ SCH (08:12)
--- NOTE | 2016-06-24 08:31 | PN ---
DATE OF SERVICE: 06/23/2016 CHIEF COMPLAINT: Difficulty in breathing. INTERVAL HISTORY: Mr. Paul is a 65-year-old male with the past medical history of coronary artery disease, COPD, diabetes mellitus, hypertension, hyperlipidemia, admitted to the hospital for worsening shortness of breath. Patient is currently being treated for community acquired pneumonia. Patient showed significant improvement with IV antibiotics, steroids and breathing treatments. Today he does not have any active complaints. REVIEW OF SYSTEMS: CONSTITUTIONAL: Denies having fever, chills, or rigors. RESPIRATORY: No worsening shortness of breath or cough. He feels bed than when he came in. CARDIOVASCULAR: No chest, no palpitations. GI: No abdominal pain, nausea, vomiting, or diarrhea. : No dysuria or hematuria. Patient medications have been reviewed. On examination, patient's vital signs temperature 97.6, heart rate 84, respiratory rate 20, blood pressure 122/73, saturating at 96% on 2 liters of nasal cannula. GENERAL EXAMINATION: Patient appears to be in no acute distress, comfortably lying in bed. HEAD: Atraumatic, normocephalic. EYES: Pupils, round, and reactive to light. NECK: No JVD. No thyromegaly. HEART: S1, S2 heard. LUNGS: Bilateral breath sounds are positive. A few coarse breath sounds heard. No crackles. GI: Abdomen is soft, nontender. Bowel sounds positive. EXTREMITIES: No edema. No cyanosis, no clubbing. BREASTFEEDING PROGRAM COORDINATOR: Alert, awake, oriented x3. No focal neurological deficits. PSYCHIATRIC: Appropriate mood and affect. SKIN: No rashes. Patient's labs: White count of 7.5, hemoglobin is 13, platelets of 193, sodium 137, potassium 4.3, chloride 103, bicarb 27, BUN 13, creatinine 1. ASSESSMENT AND PLAN: 1. Community-acquired pneumonia, right lower lobe. 2. Acute exacerbation of chronic obstructive pulmonary disease secondary to #1. 3. History of coronary artery disease. 4. Type 2 diabetes mellitus, insulin-dependent with an A1c of 7.2. 5. Hypertension. 6. Hyperlipidemia. 7. History of aortic aneurysm repair in 2005. 8. History of pancreatic cyst removal in the past. PLAN: The plan is to continue the patient on IV antibiotics, steroids and breathing treatments. Continue with the rest of his medication regimen. Further recommendations to follow depending on the progress of the patient. MTDD
[2016-06-24] MEDS: LOSARTAN 50 MG TAB PO SCH (08:51)
[2016-06-24] MEDS: CHOLECALCIFEROL 1,000 UNIT TAB PO SCH (11:29)
[2016-06-24 12:28] LABS: Glucose,Whole Blood 349 mg/dL (75-99)
[2016-06-24] MEDS: LEVOFLOXACIN 750 MG TAB PO SCH (12:29)
--- NOTE | 2016-06-24 13:24 | P.PN ---
Subjective Principal diagnosis: Acute right lower lobe pneumonia and COPD exacerbation 65-year-old male patient, known history of COPD, whereas been followed up in our office on a routine basis regarding his COPD and maintained on a combination of Spiriva, Symbicort and Proventil rescue inhaler. The patient was recently seen by Dr. Serrano and he was told that his condition was stable. The day following his evaluation, the patient spiked a fever of 103 and he woke up any shaky and having cold chills. Following that he started having some minimal cough and progressive shortness of breath. He was seen at Dr. Hair's office where he was found to have a pulse ox in the low 80s and that point an ambulance was called and the patient got moved to the emergency department at [facility] for further evaluation and treatment. Chest x-ray confirmed the presence of right lung pneumonia. The patient was given a dose of Levaquin in the emergency department. He is already feeling better this morning. He is white cell count was elevated at 19.3. His subsequent chest x- ray from today shows improving but persistent right basilar pulmonary infiltrate and there is no new abnormalities seen. No change in mental status. No hemoptysis. He is an ex-smoker. No chest pain. No swelling lower extremities. No travel history. No sick contacts. Sputum Gram stain and cultures to follow. Influenza screen was negative. On 06/23/2016, the patient is feeling better. He is less short of breath. There is been some slight improvement in the right lower lobe pulmonary infiltration. No sweating. No fever or chills. Remains on broad-spectrum antibiotics. Cultures of been all negative. No chest pain. No swelling lower extremities. Still on bronchodilators. Receiving systemic steroids. On 06/24/2016, patient continues to do well, clinically he is much improved, chest x-ray is showing minimal improvement compared to admission chest x-ray. Less cough and less wheezing less shortness of breath. Remains on antibiotics and bronchodilators and steroids. I plan to consider discharge planning in the next 24 hours. Objective - Vital Signs Vital signs: Vital Signs Temp 97.2 F L 06/24/16 07:00 Pulse 88 06/24/16 11:49 Resp 16 06/24/16 07:00 BP 110/75 06/24/16 08:54 Pulse Ox 88 L 06/24/16 11:05 Intake & Output 06/23/16 06/24/16 06/24/16 18:59 06:59 18:59 Intake Total 2400 640 Balance 2400 640 Weight 136 kg Intake: Intake, IV Titration 150 Amount Levofloxacin 750Mg-D5w 150 Pmx 750 mg In Dextrose/ Water 1 150ml.bag @ 100 mls/hr IVPB Q24H DELGADO Rx#: [id number] Oral 2250 640 Other: # Voids 3 2 # Bowel Movements 0 - Exam Physical Exam: Revealed a 65-year-old in no distress HEENT:[Neck is supple.] [No neck masses.] [No thyromegaly.] [No JVD.] Chest: [Minimal crackles at the right base, no rhonchi, no wheezes..] Cardiac Exam: [Normal S1 and S2, no S3 gallop, no murmur.] Abdomen: [Soft, nontender, no megaly, no rebound, no guarding, normal bowel sounds.] Extremities: [No clubbing, no edema, no cyanosis.] Neurological Exam: [No focal neurologic deficit.] - Labs CBC & Chem 7: 06/23/16 10:50 06/23/16 10:50 Labs: Abnormal Lab Results - Last 24 Hours (Table) 06/23/16 06/23/16 06/24/16 Range/Units 17:24 20:57 07:32 POC Glucose (mg/dL) 276 H 227 H 245 H (75-99) mg/dL 06/24/16 Range/Units 12:23 POC Glucose (mg/dL) 349 H (75-99) mg/dL Microbiology - Last 24 Hours (Table) 06/21/16 18:00 Blood Culture - Preliminary Blood No Growth after 48 hours Assessment and Plan Plan: 1 acute community acquired right lower lobe pneumonia, improving 2 COPD exacerbation secondary to above improving 3 acute febrile illness secondary to above, currently afebrile 4 leukocytosis, secondary to above, improving 5 coronary artery disease 6 diabetes mellitus 7 hypertension 8 hyperlipidemia 9 aortic aneurysm that has been repaired surgically Recommendation: Continue present treatment plan, consider switching to oral antibiotics in a.m., continue prednisone burst and taper, consider discharge planning in the morning, patient may qualify for home O2. Patient is to ambulate in the hallway today. Time with Patient: Less than 30
[2016-06-24 17:23] LABS: Glucose,Whole Blood 355 mg/dL (75-99)
[2016-06-24 21:45] LABS: Glucose,Whole Blood 377 mg/dL (75-99)
[2016-06-24] MEDS ORDERED: INSULIN LISPRO (humaLOG) 300 UNIT/3 ML VIAL SQ ONE (21:58)
[2016-06-24] MEDS ORDERED: INSULIN DETEMIR 100 UNIT/ML 10 ML VIAL SQ SCH (22:00)
[2016-06-25] MEDS: ZOLPIDEM 10 MG TAB PO SCH (00:15)
[2016-06-25] MEDS: METOPROLOL TARTRATE 50 MG TAB PO SCH ×2 (00:16→12:26)
[2016-06-25] MEDS: AMITRIPTYLINE HCL 50 MG TAB PO SCH (00:16)
[2016-06-25] MEDS: ATORVASTATIN 20 MG TAB PO SCH (00:16)
[2016-06-25] MEDS: amLODIPine 10 MG TAB PO SCH (00:16)
--- NOTE | 2016-06-25 06:33 | PN ---
DATE OF SERVICE: 06/24/2016 INTERVAL HISTORY: Mr. Paul is a 65-year-old male with a past medical history of coronary artery disease, COPD, diabetes mellitus, hypertension, hyperlipidemia admitted to the hospital for worsening shortness of breath. Patient is being treated for community-acquired pneumonia. Patient has been started on IV antibiotics with steroids and breathing treatments and showed significant improvement in his symptoms. Patient does not have any active complaints. REVIEW OF SYSTEMS: CONSTITUTIONAL: Denies having any fevers, chills or rigors. RESPIRATORY: His difficulty in breathing has been better. CARDIOVASCULAR: No chest pain. No palpitations. GI: No abdominal pain, nausea, vomiting or diarrhea. : No dysuria or hematuria. Patient's medications have been reviewed. On examination, patient's vital signs: Temperature 96.5, heart rate 90, respiratory rate 22, blood pressure 146/70, saturating at 94% on 4 L of nasal cannula. GENERAL EXAMINATION: Patient appears to be no acute distress, lying comfortably in the bed. HEAD: Atraumatic, normocephalic. EYES: Pupils round and reactive to light. NECK: No JVD. No thyromegaly. CARDIOVASCULAR: S1, S2 heard. LUNGS: Diminished breath sounds in all lung humphries. Coarse breath sounds heard. No crackles. GI: Abdomen is soft, nontender. Bowel sounds positive. EXTREMITIES: No edema. No cyanosis. No clubbing. STAFFING SPECIALIST: Alert, awake, oriented x3. No focal deficits. PSYCHIATRIC: Appropriate mood and affect. SKIN: No rash. THE PATIENT'S LABS: White count 7.5, hemoglobin is 13, platelets of 193. Sodium 137, potassium 4.5, chloride 103, bicarb 27, BUN 13, creatinine 1. ASSESSMENT AND PLAN: 1. Community-acquired pneumonia right lower lobe. 2. Acute exacerbation of chronic obstructive pulmonary disease secondary to #1. 3. History of coronary artery disease. 4. Type 2 diabetes mellitus, insulin dependent with an A1c of 7.2. 5. Hypertension. 6. Hyperlipidemia. 7. History of aortic aneurysm repair in 2005. 8. History of pancreatic cyst removal in the past. PLAN: The plan is to continue the patient on IV antibiotics. His steroids have been deescalated. I will continue with breathing treatments. Pulmonary on board and following the patient closely. Patient is showing significant improvement in his symptoms. So anticipate discharge in the next 24 to 48 hours.
[2016-06-25 07:10] LABS: Glucose,Whole Blood 175 mg/dL (75-99)
[2016-06-25] MEDS: CREON 24,000 UNITS PO SCH ×2 (07:35→12:29)
[2016-06-25] MEDS: PANTOPRAZOLE 40 MG TABLET PO SCH (07:35)
[2016-06-25] MEDS: INSULIN LISPRO (humaLOG) 300 UNIT/3 ML VIAL SQ SCH ×2 (07:35→12:26)
[2016-06-25 07:51] VITALS: BP 103/59; RESP 20; TEMP 96.4
[2016-06-25] MEDS: TIOTROPIUM 18 MCG/PUFF INHALER INHALATION SCH (08:01)
[2016-06-25] MEDS: IPRATROPIUM-ALBUTEROL 3 ML NEB INHALATION SCH ×3 (08:01→15:28)
[2016-06-25] MEDS: SYMBICORT 160-4.5 MCG INHALER INHALATION SCH (08:01)
[2016-06-25] MEDS: predniSONE 10 MG TAB PO SCH (08:19)
[2016-06-25] MEDS: ASPIRIN 81 MG CHEW PO SCH (08:19)
[2016-06-25] MEDS: FUROSEMIDE 20 MG TAB PO SCH (08:19)
[2016-06-25] MEDS: RANOLAZINE 500 MG TAB.ER.12H PO SCH (08:19)
[2016-06-25] MEDS: LOSARTAN 50 MG TAB PO SCH (08:20)
[2016-06-25] MEDS: ENOXAPARIN 40 MG/0.4 ML SYRINGE SQ SCH (08:20)
[2016-06-25] MEDS: PREGABALIN 75 MG CAP PO SCH ×2 (08:20→16:16)
[2016-06-25 11:55] LABS: Glucose,Whole Blood 291 mg/dL (75-99)
[2016-06-25] MEDS: CHOLECALCIFEROL 1,000 UNIT TAB PO SCH (12:26)
[2016-06-25] MEDS: LEVOFLOXACIN 750 MG TAB PO SCH (13:45)
--- NOTE | 2016-06-25 14:12 | P.PN ---
Subjective Principal diagnosis: COPD exacerbation complicated by right lower lobe pneumonia 65-year-old male patient, known history of COPD, whereas been followed up in our office on a routine basis regarding his COPD and maintained on a combination of Spiriva, Symbicort and Proventil rescue inhaler. The patient was recently seen by Dr. Serrano and he was told that his condition was stable. The day following his evaluation, the patient spiked a fever of 103 and he woke up any shaky and having cold chills. Following that he started having some minimal cough and progressive shortness of breath. He was seen at Dr. Hair's office where he was found to have a pulse ox in the low 80s and that point an ambulance was called and the patient got moved to the emergency department at [facility] for further evaluation and treatment. Chest x-ray confirmed the presence of right lung pneumonia. The patient was given a dose of Levaquin in the emergency department. He is already feeling better this morning. He is white cell count was elevated at 19.3. His subsequent chest x- ray from today shows improving but persistent right basilar pulmonary infiltrate and there is no new abnormalities seen. No change in mental status. No hemoptysis. He is an ex-smoker. No chest pain. No swelling lower extremities. No travel history. No sick contacts. Sputum Gram stain and cultures to follow. Influenza screen was negative. On 06/23/2016, the patient is feeling better. He is less short of breath. There is been some slight improvement in the right lower lobe pulmonary infiltration. No sweating. No fever or chills. Remains on broad-spectrum antibiotics. Cultures of been all negative. No chest pain. No swelling lower extremities. Still on bronchodilators. Receiving systemic steroids. On 06/24/2016, patient continues to do well, clinically he is much improved, chest x-ray is showing minimal improvement compared to admission chest x-ray. Less cough and less wheezing less shortness of breath. Remains on antibiotics and bronchodilators and steroids. I plan to consider discharge planning in the next 24 hours. The patient is seen again today 06/25/2016 in follow-up on the regular medical floor. He is awake and alert in no acute distress. He is feeling nearly back to his baseline. He denies any worsening shortness of breath, cough or congestion. He is anxious to go home. Objective - Vital Signs Vital signs: Vital Signs Temp 96.4 F L 06/25/16 07:00 Pulse 80 06/25/16 12:16 Resp 20 06/25/16 07:00 BP 103/59 06/25/16 07:00 Pulse Ox 92 L 06/25/16 13:35 Intake & Output 06/24/16 06/25/16 06/25/16 18:59 06:59 18:59 Intake Total 320 200 Balance 320 200 Weight 136 kg Intake: Oral 320 200 Other: # Voids 1 2 # Bowel Movements 0 - Exam GENERAL EXAM: Alert, active, comfortable in no apparent distress. HEAD: Normocephalic. EYES: Normal reaction of pupils, equal size. NOSE: Clear with pink turbinates. THROAT: No erythema or exudates. NECK: No masses, no JVD. CHEST: No chest wall deformity. LUNGS: Equal air entry with no faint crackles in the right posterior base. CVS: S1 and S2 normal with no audible murmurs, regular rhythm. ABDOMEN: No hepatosplenomegaly, normal bowel sounds, no guarding or rigidity. SPINE: No scoliosis or deformity SKIN: No rashes CENTRAL NERVOUS SYSTEM: No focal deficits, tone is normal in all 4 extremities. Extremities: There is no peripheral edema. No clubbing, no cyanosis. Peripheral pulses are intact. - Labs CBC & Chem 7: 06/23/16 10:50 06/23/16 10:50 Labs: Abnormal Lab Results - Last 24 Hours (Table) 06/24/16 06/24/16 06/25/16 Range/Units 17:11 21:10 07:08 POC Glucose (mg/dL) 355 H 377 H 175 H (75-99) mg/dL 06/25/16 Range/Units 11:53 POC Glucose (mg/dL) 291 H (75-99) mg/dL Microbiology - Last 24 Hours (Table) 06/21/16 18:00 Blood Culture - Preliminary Blood No Growth after 72 hours Assessment and Plan Plan: Impression: 1 acute community acquired right lower lobe pneumonia, improving 2 COPD exacerbation secondary to above improving 3 acute febrile illness secondary to above, currently afebrile 4 leukocytosis, secondary to above, improving 5 coronary artery disease 6 diabetes mellitus 7 hypertension 8 hyperlipidemia 9 aortic aneurysm that has been repaired surgicallyplan: The patient was seen and evaluated by Dr. Diallo. He is cleared for discharge from the pulmonary standpoint. We'll continue with his antibiotics, bronchodilators and a prednisone taper. He'll follow-up in our office with Dr. Price in 1-2 weeks' time. He is however encouraged to call sooner with any recurrence of symptoms or other questions or concerns. The patient will be set up for home oxygen for now.
[2016-06-25 15:31] VITALS: PULSE 78
--- NOTE | 2016-06-27 12:33 | DS ---
DATE OF ADMISSION: 06/21/2016 DATE OF DISCHARGE: 06/25/2016 FINAL DIAGNOSES: 1. Right lower lobe community-acquired pneumonia, suspect gram-negative organism, present on admission. 2. Acute exacerbation of chronic obstructive pulmonary disease in an ex-smoker. 3. Coronary artery disease with nonocclusive disease based on previous cardiac catheterization. 4. Diabetes mellitus type 2, chronically on insulin. 5. Hyperlipidemia. 6. Essential hypertension. 7. Chronic congestive heart failure from diastolic dysfunction, ejection fraction not known. 8. Chronic right bundle branch block. 9. History of exposure to Agent [place]. HOSPITAL COURSE: This is a patient who presented with COPD exacerbation, pneumonia, doing much better at the time of discharge. Breathing had improved. Minimal sputum production. Blood cultures were negative. ON EXAM: LUNGS: Decreased breath sounds. CARDIOVASCULAR: First and second sounds normal. PSYCH: Alert and oriented x3. Care was discussed in detail with the patient and the . CONSULTATION: Dr. Diallo from pulmonary. DISCHARGE MEDICATIONS: 1. Ventolin HFA 1 to 2 puffs q.i.d. p.r.n. 2. Ventolin nebulizer q.i.d. p.r.n. 3. Elavil 50 mg p.o. q.h.s. 4. Aspirin 81 mg p.o. daily. 5. Lipitor 20 mg p.o. q.h.s. 6. Symbicort 160/ 4.5 two puffs b.i.d. 7. Vitamin D3, 2000 units p.o. daily. 8. Vitamin D2, 50,000 units every Friday. 9. Lasix 20 mg a day. 10. NovoLog FlexPen t.i.d. 11. Levemir 28 units subcu q.h.s. 12. Creon 24,000 units capsule q.i.d. 13. Cozaar 50 mg p.o. daily. 14. Lopressor 50 mg p.o. b.i.d. 15. Multivitamin 1 tablet p.o. daily. 16. Nitrostat 0.4 sublingual q.5 p.r.n. 17. Omeprazole 20 mg with breakfast. 18. Lyrica 75 mg p.o. t.i.d. 19. Ranexa 1000 mg p.o. b.i.d. 20. Spiriva 1 capsule daily. 21. Ambien 10 mg p.o. q.h.s. 22. Norvasc 10 mg p.o. q.h.s. 23. Levaquin 750 mg p.o. daily for 3 tablets. 24. Prednisone taper. Follow up with Dr. Serrano in 10 days. Follow up with Dr. Bam Urrutia on 06/28/16. Discharge planning more than 35 minutes. Home oxygen 3 L.
== END 2016-06-25 16:47 | disposition home or self-care (01) | DRG 190 ==
LOC: EC 16:23 → 4MS4W 17:41
PROVIDERS: ADMIT Hospitalist; ATTEND Hospitalist
DX: J44.0 Chronic obstructive pulmonary disease with (acute) lower respiratory infection (principal); J96.01 Acute respiratory failure with hypoxia; I11.0 Hypertensive heart disease with heart failure; J18.9 Pneumonia, unspecified organism; E11.42 Type 2 diabetes mellitus with diabetic polyneuropathy; I50.32 Chronic diastolic (congestive) heart failure; I25.10 Atherosclerotic heart disease of native coronary artery without angina pectoris; E78.5 Hyperlipidemia, unspecified; J44.1 Chronic obstructive pulmonary disease with (acute) exacerbation; I45.10 Unspecified right bundle-branch block; H91.90 Unspecified hearing loss, unspecified ear; F41.9 Anxiety disorder, unspecified; F43.10 Post-traumatic stress disorder, unspecified; D72.829 Elevated white blood cell count, unspecified; Z79.82 Long term (current) use of aspirin; Z79.4 Long term (current) use of insulin; Z82.49 Family history of ischemic heart disease and other diseases of the circulatory system; Z87.891 Personal history of nicotine dependence; Z79.899 Other long term (current) drug therapy; Z86.79 Personal history of other diseases of the circulatory system; Z88.8 Allergy status to other drugs, medicaments and biological substances; Z87.19 Personal history of other diseases of the digestive system; Z87.01 Personal history of pneumonia (recurrent); Z91.013 Allergy to seafood; Z79.51 Long term (current) use of inhaled steroids; Z77.098 Contact with and (suspected) exposure to other hazardous, chiefly nonmedicinal, chemicals
CPT/HCPCS: 36415; 71010; 71020; 80048; 80053; 82550; 82553; 83036; 83605; 83735; 83880; 84484; 85025; 85610; 85730; 87040; 87502; 93005; 94640; 94760; 99213; 99285

== ENCOUNTER 2017-02-17 00:44 | Inpatient (IN) | payer OTHER, MEDICARE ==
[2017-02-17] MEDS ORDERED: ACETAMINOPHEN TAB 500 MG TAB PO STA (00:56)
[2017-02-17] MEDS ORDERED: SODIUM CHLORIDE 0.9% 500 ML IV ONE (01:13)
[2017-02-17] MEDS ORDERED: IPRATROPIUM-ALBUTEROL 3 ML NEB INHALATION STA (01:14)
[2017-02-17] MEDS ORDERED: DEXAMETHASONE SOD PHOSPHATE 10 MG/ML 1 ML VIAL IV STA (01:14)
[2017-02-17] MEDS ORDERED: SODIUM CHLORIDE 0.9% 1,000 ML IV SCH (01:15)
--- NOTE | 2017-02-17 01:18 | ED ---
General Adult HPI - General Chief complaint: Shortness of Breath Stated complaint: KIKO, Fever Time Seen by Provider: 02/17/17 00:56 Source: patient, RN notes reviewed Mode of arrival: ambulatory Limitations: no limitations - History of Present Illness Initial comments: 66-year-old male with history of COPD and recurrent pneumonia presents with fever, shortness of breath, and low oxygen saturation at home. Patient wears 2 L of oxygen at nighttime, according to his he had an oxygen saturation of 84% at home. Fever and difficult to breathing has been progressive over the past 3-4 days. Patient does report mild cough and chest congestion. Cough is nonproductive. Patient states there is no increase in his cough above baseline. Denies abdominal pain. Denies nausea vomiting or diarrhea. Denies rash. Denies dysuria. - Related Data Home Medications Medication Instructions Recorded Confirmed Albuterol Inhaler [Ventolin Hfa 1 - 2 puff INHALATION RT-QID PRN 06/21/16 Inhaler] Albuterol Nebulized [Ventolin 2.5 mg INHALATION RT-QID PRN 06/21/16 06/21/16 Nebulized] Amitriptyline HCl [Elavil] 50 mg PO HS 06/21/16 06/21/16 Aspirin 81 mg PO DAILY 06/21/16 06/21/16 Atorvastatin [Lipitor] 20 mg PO HS 06/21/16 06/21/16 Budesonide/Formoterol Fumarate 2 puff INHALATION RT-BID 06/21/16 06/21/16 [Symbicort 160-4.5 Mcg Inhaler] Cholecalciferol [Vitamin D3] 2,000 unit PO DAILY 06/21/16 06/21/16 Ergocalciferol (Vitamin D2) 50,000 unit PO FR 06/21/16 06/21/16 [Vitamin D2] Furosemide [Lasix] 20 mg PO DAILY 06/21/16 06/21/16 Insulin Aspart [NovoLOG Flexpen] See Protocol SQ AC-TID 06/21/16 06/21/16 Insulin Detemir [Levemir Flextouch] 28 units SQ HS 06/21/16 06/21/16 Lipase/Protease/Amylase [Creon Dr 1 cap PO QID 06/21/16 06/21/16 24,000 Units Capsule] Losartan Potassium [Cozaar] 50 mg PO DAILY 06/21/16 06/21/16 Metoprolol Tartrate [Lopressor] 50 mg PO BID 06/21/16 06/21/16 Multivitamins, Thera [Multivitamin 1 tab PO DAILY 06/21/16 06/21/16 (formulary)] Nitroglycerin Sl Tabs [Nitrostat] 0.4 mg SUBLINGUAL Q5M PRN 06/21/16 06/21/16 Omeprazole 20 mg PO AC-BRKFST 06/21/16 06/21/16 Pregabalin [Lyrica] 75 mg PO TID 06/21/16 06/21/16 Ranolazine [Ranexa] 1,000 mg PO BID 06/21/16 06/21/16 Tiotropium 18 Mcg/Puff [Spiriva] 1 cap INHALATION RT-DAILY 06/21/16 06/21/16 Zolpidem Tartrate [Ambien] 10 mg PO HS 06/21/16 06/21/16 amLODIPine [Norvasc] 10 mg PO HS 06/21/16 06/21/16 Previous Rx's Medication Instructions Recorded Levofloxacin [Levaquin] 750 mg PO DAILY@1300 #3 tab 06/25/16 predniSONE 10 mg PO DAILY #30 tab 06/25/16 Allergies Allergy/AdvReac Type Severity Reaction Status Date / Time lisinopril Allergy Unknown Verified 02/17/17 00:53 metformin Allergy Unknown Verified 02/17/17 00:53 prednisone Allergy Chest Pain Verified 02/17/17 00:53 shellfish derived [Shellfish] Allergy Anaphylaxis Verified 02/17/17 00:53 theodur Allergy Hallucinati Uncoded 02/17/17 00:53 ons Review of Systems ROS Statement: Those systems with pertinent positive or pertinent negative responses have been documented in the HPI. ROS Other: All systems not noted in ROS Statement are negative. Past Medical History Past Medical History: Coronary Artery Disease (CAD), Heart Failure, COPD, Diabetes Mellitus, Hearing Disorder / Deafness, Hyperlipidemia, Hypertension, Pneumonia, Syncope Additional Past Medical History / Comment(s): COPD moderate in severity, coronary artery disease with nonocclusive disease based on previous cardiac catheterization, diabetes mellitus, abdominal aortic aneurysm that has been repaired surgically at [facility], diabetic peripheral neuropathy, diabetes mellitus maintained on insulin outpatient basis, hypertension, hyperlipidemia, hearing impairment, CHF with diastolic dysfunction , right bundle branch block pattern on his EKG, exposure to agent orange, 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 Diabetic Dysautonamia. History of Any Multi-Drug Resistant Organisms: None Reported Additional Past Surgical History / Comment(s): pancreatic cyst removal 2004, AAA repair 2005 Past Anesthesia/Blood Transfusion Reactions: No Reported Reaction Past Psychological History: Anxiety, PTSD Smoking Status: Former smoker Past Alcohol Use History: None Reported Past Drug Use History: None Reported General Exam Limitations: no limitations General appearance: alert, in distress Head exam: Present: atraumatic, normocephalic Eye exam: Present: normal appearance, PERRL ENT exam: Present: normal exam Neck exam: Present: normal inspection. Absent: tenderness, meningismus Respiratory exam: Present: respiratory distress, prolonged expiratory. Absent: wheezes, chest wall tenderness, accessory muscle use Cardiovascular Exam: Present: normal rhythm, tachycardia GI/Abdominal exam: Present: soft, other ( midline Scar). Absent: distended, tenderness Extremities exam: Present: normal inspection, normal capillary refill. Absent: pedal edema Back exam: Present: normal inspection. Absent: full ROM Neurological exam: Present: alert, oriented X3, CN II-XII intact. Absent: motor sensory deficit Psychiatric exam: Present: normal affect, normal mood Skin exam: Present: warm, dry, intact. Absent: cyanosis, diaphoretic Course Vital Signs 02/17/17 02/17/17 02/17/17 00:47 01:24 01:28 Temperature 102.1 F H Pulse Rate 105 H 95 Respiratory 24 20 Rate Blood Pressure 134/64 O2 Sat by Pulse 89 L Oximetry 02/17/17 02/17/17 02/17/17 01:38 01:58 02:23 Temperature 101.8 F H 101.4 F H Pulse Rate 94 99 Respiratory 18 Rate Blood Pressure 121/70 O2 Sat by Pulse 92 L Oximetry EKG Findings - EKG Comments: EKG Findings:: Normal sinus rhythm, right bundle-branch block, ventricular rate 100, KS interval 148, QRS duration 120 QTC 477 Medical Decision Making - Medical Decision Making 66-year-old male presenting with chief complaint fever, difficulty breathing, and hypoxia. Patient does have mild cough. Laboratory studies reveal elevated white blood cell count 14.8. Hemoccult was stable. Left lites within normal limits. Troponin negative. EKG shows normal sinus rhythm, unchanged from previous of June 2016. Chest x-ray shows right upper lobe pneumonia. This is consistent with his increased oxygen need and fever. Patient will be treated for healthcare associated pneumonia. He's had 2 episodes of pneumonia in the past 6 months. Cultures are pending. - Lab Data Result diagrams: 02/17/17 01:04 02/17/17 01:04 Lab Results 02/17/17 02/17/17 02/17/17 Range/Units 01:04 01:04 01:04 WBC 14.8 H (3.8-10.6) k/uL RBC 4.74 (4.30-5.90) m/uL Hgb 13.8 (13.0-17.5) gm/dL Hct 42.4 (39.0-53.0) % MCV 89.5 (80.0-100.0) fL MCH 29.2 (25.0-35.0) pg MCHC 32.6 (31.0-37.0) g/dL RDW 14.8 (11.5-15.5) % Plt Count 231 (150-450) k/uL Neutrophils % 81 % Lymphocytes % 12 % Monocytes % 5 % Eosinophils % 1 % Basophils % 0 % Neutrophils # 12.0 H (1.3-7.7) k/uL Lymphocytes # 1.8 (1.0-4.8) k/uL Monocytes # 0.7 (0-1.0) k/uL Eosinophils # 0.1 (0-0.7) k/uL Basophils # 0.0 (0-0.2) k/uL PT (9.0-12.0) sec INR (<1.2) APTT (22.0-30.0) sec Sodium 135 L (137-145) mmol/L Potassium 4.1 (3.5-5.1) mmol/L Chloride 102 (98-107) mmol/L Carbon Dioxide 23 (22-30) mmol/L Anion Gap 10 mmol/L BUN 16 (9-20) mg/dL Creatinine 1.20 (0.66-1.25) mg/dL Est GFR (MDRD) Af Amer >60 (>60 ml/min/1.73 sqM) Est GFR (MDRD) Non-Af >60 (>60 ml/min/1.73 sqM) Glucose 221 H (74-99) mg/dL Plasma Lactic Acid Rainer (0.7-2.0) mmol/L Calcium 9.0 (8.4-10.2) mg/dL Total Bilirubin 0.9 (0.2-1.3) mg/dL AST 16 L (17-59) U/L ALT 33 (21-72) U/L Alkaline Phosphatase 89 (38-126) U/L Total Creatine Kinase 48 L (55-170) U/L CK-MB (CK-2) 0.8 (0.0-2.4) ng/mL CK-MB (CK-2) Rel Index 1.7 Troponin I <0.012 (0.000-0.034) ng/mL Total Protein 6.5 (6.3-8.2) g/dL Albumin 3.5 (3.5-5.0) g/dL 02/17/17 02/17/17 Range/Units 01:04 01:04 WBC (3.8-10.6) k/uL RBC (4.30-5.90) m/uL Hgb (13.0-17.5) gm/dL Hct (39.0-53.0) % MCV (80.0-100.0) fL MCH (25.0-35.0) pg MCHC (31.0-37.0) g/dL RDW (11.5-15.5) % Plt Count (150-450) k/uL Neutrophils % % Lymphocytes % % Monocytes % % Eosinophils % % Basophils % % Neutrophils # (1.3-7.7) k/uL Lymphocytes # (1.0-4.8) k/uL Monocytes # (0-1.0) k/uL Eosinophils # (0-0.7) k/uL Basophils # (0-0.2) k/uL PT 11.5 (9.0-12.0) sec INR 1.1 (<1.2) APTT 27.8 (22.0-30.0) sec Sodium (137-145) mmol/L Potassium (3.5-5.1) mmol/L Chloride (98-107) mmol/L Carbon Dioxide (22-30) mmol/L Anion Gap mmol/L BUN (9-20) mg/dL Creatinine (0.66-1.25) mg/dL Est GFR (MDRD) Af Amer (>60 ml/min/1.73 sqM) Est GFR (MDRD) Non-Af (>60 ml/min/1.73 sqM) Glucose (74-99) mg/dL Plasma Lactic Acid Rainer 1.2 (0.7-2.0) mmol/L Calcium (8.4-10.2) mg/dL Total Bilirubin (0.2-1.3) mg/dL AST (17-59) U/L ALT (21-72) U/L Alkaline Phosphatase (38-126) U/L Total Creatine Kinase (55-170) U/L CK-MB (CK-2) (0.0-2.4) ng/mL CK-MB (CK-2) Rel Index Troponin I (0.000-0.034) ng/mL Total Protein (6.3-8.2) g/dL Albumin (3.5-5.0) g/dL Disposition Clinical Impression: Acute exacerbation of chronic obstructive airways disease, Healthcare- associated pneumonia Disposition: ADMITTED IP TO THIS [facility] Condition: Stable Referrals: Bam Urrutia MD [Primary Care Provider] - 1-2 days Decision to Admit Reason: Admit from EC Decision Date: 02/17/17 Decision Time: 02:31
[2017-02-17 01:22] LABS: Basophils % (A) 0 %; CH 29.6; CHCM 33.3; Eosinophils # (A) 0.1 k/uL (0-0.7); Eosinophils % (A) 1 %; HCT 42.4 % (39.0-53.0); HDW 2.43; HGB 13.8 gm/dL (13.0-17.5); Luc # (Auto) 0.19; Luc % (Auto) 1; Lymphocytes # (A) 1.8 k/uL (1.0-4.8); Lymphocytes % (A) 12 %; MCH 29.2 pg (25.0-35.0); MCHC 32.6 g/dL (31.0-37.0); MCV 89.5 fL (80.0-100.0); Mean Platelet Volume 8.1; Monocytes # (A) 0.7 k/uL (0-1.0); Monocytes % (A) 5 %; Neutrophils % (A) 81 %; RBC 4.74 m/uL (4.30-5.90); RDW 14.8 % (11.5-15.5); WBC 14.8 k/uL (3.8-10.6); WBC (Perox) 14.79
[2017-02-17 01:29] LABS: INR 1.1 (<1.2); Partial Thromboplastin Time 27.8 sec (22.0-30.0); Prothrombin Time 11.5 sec (9.0-12.0)
[2017-02-17 01:31] LABS: ALT 33 U/L (21-72); AST 16 U/L (17-59); Alkaline Phosphatase 89 U/L (38-126); Anion Gap 10 mmol/L; Blood Urea Nitrogen 16 mg/dL (9-20); Carbon Dioxide 23 mmol/L (22-30); Chloride 102 mmol/L (98-107); Glucose 221 mg/dL (74-99); Non-African American GFR(MDRD) >60 (>60 ml/min/1.73 sqM); Potassium 4.1 mmol/L (3.5-5.1); Sodium 135 mmol/L (137-145); Total Bilirubin 0.9 mg/dL (0.2-1.3); Total Protein 6.5 g/dL (6.3-8.2)
--- NOTE | 2017-02-17 01:33 | XR ---
EXAM: XR Chest, 2 Views CLINICAL HISTORY: Reason: Fever/cough TECHNIQUE: Frontal and lateral views of the chest. COMPARISON: 07/04/16 FINDINGS: Lungs: Right suprahilar infiltrate. Heart and pulmonary vasculature are within normal limits. Pleural space: Unremarkable. No pneumothorax. Heart: See above. Mediastinum: Unremarkable. Bones/joints: Osseous structures intact. IMPRESSION: Right upper lobe infiltrate and right hilar prominence suspicious for bronchopneumonia.
[2017-02-17 01:44] LABS: Creatine Kinase 48 U/L (55-170)
[2017-02-17 01:57] LABS: Creatine Kinase MB 0.8 ng/mL (0.0-2.4); Troponin I <0.012 ng/mL (0.000-0.034)
[2017-02-17] MEDS ORDERED: VANCOMYCIN IV PER PHARMACY 1 EACH MISC MISCELLANE PRN (02:20)
[2017-02-17] MEDS ORDERED: CEFEPIME 2 GM in SODIUM CHLORIDE 0.9% 50 ML IVPB STA (02:20)
[2017-02-17] MEDS ORDERED: IPRATROPIUM-ALBUTEROL 3 ML NEB INHALATION PRN (02:26)
[2017-02-17] MEDS: CEFEPIME 2 GM in SODIUM CHLORIDE 0.9% 50 ML IVPB SCH ×2 (02:43→12:02)
[2017-02-17] MEDS ORDERED: IBUPROFEN 800 MG TAB PO STA (02:48)
[2017-02-17 02:53] LABS: Appearance,Urine Clear (Clear); Bilirubin,Urine Negative (Negative); Glucose,Urine (UA) 1+ (Negative); Ketones,Urine Negative (Negative); Leukocyte Esterase,Urine Negative (Negative); Nitrite,Urine Negative (Negative); PH, Urine 5.5 (5.0-8.0); Protein,Urine Trace (Negative); Specific Gravity,Urine 1.015 (1.001-1.035); UA Billing (MACRO vs. MICRO) CHEM; Urobilinogen,Urine <2.0 mg/dL (<2.0)
[2017-02-17] MEDS ORDERED: VANCOMYCIN 1,500 MG in SODIUM CHLORIDE 0.9% 250 ML IVPB SCH (04:00)
[2017-02-17 07:36] LABS: Glucose,Whole Blood 149 mg/dL (75-99)
[2017-02-17] MEDS ORDERED: NITROGLYCERIN SL TABS 0.4 MG TAB SUBLINGUAL PRN (08:18)
[2017-02-17] MEDS: IPRATROPIUM-ALBUTEROL 3 ML NEB INHALATION SCH ×4 (08:20→20:56)
[2017-02-17] MEDS: INSULIN ASPART 100 UNIT/ML 1 ML 10 ML VIAL SQ SCH ×4 (08:38→17:41)
[2017-02-17] MEDS: PANTOPRAZOLE 40 MG TABLET PO SCH (09:03)
[2017-02-17] MEDS: ENOXAPARIN 40 MG/0.4 ML SYRINGE SQ SCH (09:04)
[2017-02-17] MEDS: ASPIRIN 81 MG PO SCH (09:04)
[2017-02-17] MEDS: LIPASE 5,000/PROTEASE 17,000/AMYLASE 27,0000 PO SCH ×4 (09:05→22:21)
[2017-02-17] MEDS: METOPROLOL TARTRATE 50 MG TAB PO SCH ×2 (09:06→22:15)
[2017-02-17] MEDS: FUROSEMIDE 20 MG TAB PO SCH (09:06)
[2017-02-17] MEDS: LOSARTAN 50 MG TAB PO SCH (09:06)
--- NOTE | 2017-02-17 11:05 | P.CNPUL ---
History of Present Illness Consult date: 02/17/17 Reason for consult: dyspnea, cough, COPD, pneumonia, abnormal CXR/CT Chief complaint: Shortness of breath History of present illness: Consult dated 02/17/2017 This is a 66-year-old male with history of underlying COPD. He presents to the emergency department with complaints of shortness of breath fever cough phlegm production. Saturations are all were in the mid 80s on oxygen. He does wear oxygen at home most of the time. The patient states he hasn't been feeling well for about 3 or 4 days and been getting worse. Lots of chest congestion coughing wheezing. The patient does feel better today. I do see him in the office for his COPD. As I recall, he has stage III disease. I looked at his chest x-ray. His chest x-ray shows evidence of right upper lobe pneumonia. This is why he is being admitted for COPD exacerbation Compu by right upper lobe pneumonia. Again the patient seemed a lot better today than he did when he first came into the hospital. His primary care physician's Dr. Bam Urrutia. Review of Systems A 12 point review of system is positive for shortness of breath chest congestion coughing wheezing phlegm production. No fever or chills. No nausea vomiting or diarrhea. Past Medical History Past Medical History: Coronary Artery Disease (CAD), Heart Failure, COPD, Diabetes Mellitus, Hearing Disorder / Deafness, Hyperlipidemia, Hypertension, Pneumonia, Syncope Additional Past Medical History / Comment(s): COPD moderate in severity, coronary artery disease with nonocclusive disease based on previous cardiac catheterization, diabetes mellitus, abdominal aortic aneurysm that has been repaired surgically at [facility] in [place], diabetic peripheral neuropathy, diabetes mellitus maintained on insulin outpatient basis, hypertension, hyperlipidemia, hearing impairment, CHF with diastolic dysfunction , right bundle branch block pattern on his EKG, exposure to agent orange, 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 Diabetic Dysautonamia. History of Any Multi-Drug Resistant Organisms: None Reported Additional Past Surgical History / Comment(s): pancreatic cyst removal 2004, AAA repair 2005 Past Anesthesia/Blood Transfusion Reactions: No Reported Reaction Past Psychological History: Anxiety, PTSD Smoking Status: Former smoker Past Alcohol Use History: None Reported Past Drug Use History: None Reported Medications and Allergies Home Medications Medication Instructions Recorded Confirmed Type Albuterol Inhaler [Ventolin Hfa 1 - 2 puff INHALATION RT-QID PRN 06/21/16 History Inhaler] Albuterol Nebulized [Ventolin 2.5 mg INHALATION RT-QID PRN 06/21/16 02/17/17 History Nebulized] Amitriptyline HCl [Elavil] 50 mg PO HS 06/21/16 02/17/17 History Aspirin 81 mg PO DAILY 06/21/16 02/17/17 History Atorvastatin [Lipitor] 20 mg PO HS 06/21/16 02/17/17 History Budesonide/Formoterol Fumarate 2 puff INHALATION RT-BID 06/21/16 02/17/17 History [Symbicort 160-4.5 Mcg Inhaler] Cholecalciferol [Vitamin D3] 2,000 unit PO DAILY 06/21/16 02/17/17 History Ergocalciferol (Vitamin D2) 50,000 unit PO FR 06/21/16 02/17/17 History [Vitamin D2] Furosemide [Lasix] 20 mg PO DAILY 06/21/16 02/17/17 History Insulin Aspart [NovoLOG Flexpen] See Protocol SQ AC-TID 06/21/16 02/17/17 History Insulin Detemir [Levemir Flextouch] 30 units SQ HS 06/21/16 02/17/17 History Lipase/Protease/Amylase [Creon Dr 1 cap PO QID 06/21/16 02/17/17 History 24,000 Units Capsule] Losartan Potassium [Cozaar] 50 mg PO DAILY 06/21/16 02/17/17 History Metoprolol Tartrate [Lopressor] 50 mg PO BID 06/21/16 02/17/17 History Multivitamins, Thera [Multivitamin 1 tab PO DAILY 06/21/16 02/17/17 History (formulary)] Nitroglycerin Sl Tabs [Nitrostat] 0.4 mg SUBLINGUAL Q5M PRN 06/21/16 02/17/17 History Omeprazole 20 mg PO AC-BRKFST 06/21/16 02/17/17 History Pregabalin [Lyrica] 75 mg PO TID 06/21/16 02/17/17 History Ranolazine [Ranexa] 1,000 mg PO BID 06/21/16 02/17/17 History Tiotropium 18 Mcg/Puff [Spiriva] 1 cap INHALATION RT-DAILY 06/21/16 02/17/17 History Zolpidem Tartrate [Ambien] 10 mg PO HS 06/21/16 02/17/17 History amLODIPine [Norvasc] 10 mg PO HS 06/21/16 02/17/17 History Allergies Allergy/AdvReac Type Severity Reaction Status Date / Time lisinopril Allergy Unknown Verified 02/17/17 08:22 metformin Allergy Unknown Verified 02/17/17 08:22 prednisone Allergy Chest Pain Verified 02/17/17 08:22 shellfish derived [Shellfish] Allergy Anaphylaxis Verified 02/17/17 08:22 theodur Allergy Hallucinati Uncoded 02/17/17 00:53 ons Physical Exam Osteopathic Statement: *. No significant issues noted on an osteopathic structural exam other than those noted in the History and Physical/Consult. Vitals: Vital Signs Temp Pulse Pulse Resp BP BP BP 02/17/17 09:02 02/17/17 09:01 81 87/44 02/17/17 08:21 02/17/17 07:00 97.5 F L 73 16 93/50 02/17/17 03:30 98.1 F 95 20 114/59 02/17/17 02:44 92 20 110/67 02/17/17 02:23 101.4 F H 02/17/17 01:58 101.8 F H 99 18 121/70 02/17/17 01:38 94 02/17/17 01:28 95 02/17/17 01:24 20 02/17/17 00:47 102.1 F H 105 H 24 134/64 Pulse Ox 02/17/17 09:02 92 L 02/17/17 09:01 87 L 02/17/17 08:21 94 L 02/17/17 07:00 94 L 02/17/17 03:30 92 L 02/17/17 02:44 92 L 02/17/17 02:23 02/17/17 01:58 92 L 02/17/17 01:38 02/17/17 01:28 02/17/17 01:24 02/17/17 00:47 89 L Intake and Output 02/16/17 02/17/17 02/17/17 22:59 06:59 14:59 Intake Total 100 Balance 100 Intake: Oral 100 Other: Voiding Method Toilet Weight 90.265 kg No acute distress, oriented 3. HEENT examination is grossly unremarkable. Mucous membranes are moist. No oral lesions. Neck supple. Full range of motion. No adenopathy or thyromegaly. Cardiovascular examination reveals a regular rhythm rate. S1-S2 normal. No S3- S4 or murmur. Lungs reveal some expiratory rhonchi and wheezes. This some crackles in the right lung. Breath sounds are equal bilaterally. Breath sounds are generally diminished throughout though. Abdomen soft bowel sounds are heard. Extremities are intact. No cyanosis clubbing or edema. Skin without rash. Neurologic examination is brief but nonfocal. Results - Laboratory Findings CBC and BMP: 02/17/17 01:04 02/17/17 01:04 PT/INR, D-dimer PT 11.5 sec (9.0-12.0) 02/17/17 01:04 INR 1.1 (<1.2) 02/17/17 01:04 Abnormal lab findings: Abnormal Labs 02/17/17 02/17/17 02/17/17 01:04 01:04 01:04 WBC 14.8 H Neutrophils # 12.0 H Sodium 135 L Glucose 221 H POC Glucose (mg/dL) AST 16 L Total Creatine Kinase 48 L Urine Protein Urine Glucose (UA) 02/17/17 02/17/17 02:45 07:29 WBC Neutrophils # Sodium Glucose POC Glucose (mg/dL) 149 H AST Total Creatine Kinase Urine Protein Trace H Urine Glucose (UA) 1+ H - Diagnostic Findings Chest x-ray: image reviewed (X-rays labs and medications are all reviewed.) Assessment and Plan (1) Hyperlipidemia Current Visit: Yes Status: Acute Code(s): E78.5 - HYPERLIPIDEMIA, UNSPECIFIED SNOMED Code(s): 68691938 (2) GERD (gastroesophageal reflux disease) Current Visit: Yes Status: Acute Code(s): K21.9 - GASTRO-ESOPHAGEAL REFLUX DISEASE WITHOUT ESOPHAGITIS SNOMED Code(s): 570986876 (3) Hypertension Current Visit: Yes Status: Acute Code(s): I10 - ESSENTIAL (PRIMARY) HYPERTENSION SNOMED Code(s): 98767844 (4) Diabetes Current Visit: Yes Status: Acute Code(s): E11.9 - TYPE 2 DIABETES MELLITUS WITHOUT COMPLICATIONS SNOMED Code(s): 36002991 (5) Acute exacerbation of chronic obstructive airways disease Current Visit: Yes Status: Acute Code(s): J44.1 - CHRONIC OBSTRUCTIVE PULMONARY DISEASE W (ACUTE) EXACERBATION SNOMED Code(s): 168911482 (6) Acute respiratory failure Current Visit: No Status: Acute Code(s): J96.00 - ACUTE RESPIRATORY FAILURE , UNSP W HYPOXIA OR HYPERCAPNIA SNOMED Code(s): 93865777 (7) Community acquired pneumonia Current Visit: No Status: Acute Code(s): J18.9 - PNEUMONIA, UNSPECIFIED ORGANISM SNOMED Code(s): 076677818 (8) Congestive heart failure Current Visit: No Status: Acute Code(s): I50.9 - HEART FAILURE, UNSPECIFIED SNOMED Code(s): 04728404 (9) Hypoxia Current Visit: No Status: Acute Code(s): R09.02 - HYPOXEMIA SNOMED Code(s) : 367121508 Plan: The patient's doing better better today. The patient's medications labs and x- rays are all reviewed. Additional recommendations and suggestions are forthcoming. The patient should receive DuoNeb 4 times a day and when necessary. She also received Pulmicort 1 mg and formoterol twice a day as well as Solu-Medrol 60 mg every 6 hours. The patient should be on antibiotics. Culture should be done. Additional recommendations and suggestions are forthcoming. Prognosis is guarded. Time with Patient: Greater than 30
[2017-02-17] MEDS: PREGABALIN 75 MG CAP PO SCH ×3 (12:01→22:18)
[2017-02-17] MEDS: RANOLAZINE 500 MG TAB.ER.12H PO SCH ×2 (12:04→22:18)
[2017-02-17] MEDS: MULTIVITAMINS, THERA 1 EACH TAB PO SCH (12:05)
[2017-02-17] MEDS: CHOLECALCIFEROL 1,000 UNIT TAB PO SCH (12:05)
[2017-02-17 12:15] LABS: Glucose,Whole Blood 193 mg/dL (75-99)
[2017-02-17] MEDS ORDERED: INSULIN ASPART 100 UNIT/ML 1 ML 10 ML VIAL SQ SCH (12:30)
--- NOTE | 2017-02-17 12:54 | HP ---
HISTORY AND PHYSICAL DATE OF ADMISSION: 02/17/17. PRESENT COMPLAINT: Cough, short of breath, fever. HISTORY OF PRESENTING COMPLAINT: This is a pleasant 66-year-old patient of Dr. Bam Urrutia. The patient also follows with the SD and Dr. Serrano from Pulmonary. The patient's chronic stable medical conditions include coronary artery disease, diabetes with peripheral neuropathy, dysautonomia, hypertension, hyperlipidemia, diastolic CHF, right bundle branch block, agent orange exposure, some hard of hearing. The patient has had 2 bouts of pneumonia earlier this year. For 3 days patient spiked a fever of 102.4, did become short of breath with chills, pleuritic chest pain when he breathes. Decreased appetite, minimal cough, some wheezing, admitted for the same. REVIEW OF SYSTEMS: Constitutional: Febrile, chills, decreased appetite, tired. HEENT: None. RESPIRATORY: As above. Cardiovascular none. Gastrointestinal none. Genitourinary none. Musculoskeletal none. Dermatological and hematologic, lymphatic none. Psychiatry anxiety. Neurological numbness and tingling in the feet. PAST HISTORY: COPD, nonobstructive coronary artery disease, diabetes mellitus type 2 with peripheral neuropathy and dysautonomia, hypertension, hyperlipidemia, congestive heart failure from diastolic dysfunction, right bundle branch block. Agent [place] exposure, hard of hearing. Anxiety disorder, PTSD. PAST SURGICAL HISTORY: Pancreatic cyst removed in 2004, AAA repair in 2005. SOCIAL HISTORY: The patient is . He has stopped smoking 15 years ago smoked up to 2 to 3 packs a day for close to 45 years. Alcohol occasionally. FAMILY HISTORY: Reviewed, noncontributory to presentation. HOME MEDICATIONS: 1. Norvasc 10 mg q.h.s. 2. Ambien 10 mg q.h.s. 3. Spiriva 1 capsule p.o. daily. 4. Ranexa 1000 mg p.o. b.i.d. 5. Lyrica 75 mg p.o. b.i.d. 6. Omeprazole 20 mg with breakfast. 7. Nitrostat 0.4 sublingual q.5 p.r.n. 8. Multivitamin 1 tab p.o. daily. 9. Lopressor 50 mg p.o. b.i.d. 10.Cozaar 50 mg p.o. daily. 11.Creon 43527 units capsule 1 capsule p.o. q.i.d. 12.Levemir 30 units subcu q.h.s. 13.Insulin Aspart a.c. t.i.d. 14.Lasix 20 mg p.o. daily. 15.Vitamin D2 50,000 units p.o. on Friday. 16.Vitamin D3 2000 units p.o. daily. 17.Symbicort 160/4.5, 2 puffs b.i.d. 18.Lipitor 20 mg q.h.s. 19.Aspirin 81 mg p.o. daily. 20.Elavil 50 mg q.h.s. 21.Ventolin 2.5 nebulizer q.i.d. p.r.n. 22.Ventolin HFA 1-2 puffs q.i.d. p.r.n. ALLERGIES: ALLERGY TO LISINOPRIL, METFORMIN, PREDNISONE, . PHYSICAL EXAMINATION: Vital signs on presentation temperature 102.1, pulse 105, respiratory rate 24, blood pressure 130/64, pulse ox 89% on room air. General appearance sitting up tired- appearing. EYES: Pupils equal. Conjunctivae normal. HEENT: Oral cavity normal. Neck JVD not raised. Mass not palpable. Respiratory effort increased. LUNGS: Diminished breath sounds, prolonged expiration and wheezing. Cardiovascular first and second sounds normal. No edema. ABDOMEN: Soft, nontender. Liver and spleen not palpable. Lymphatics: No lymph nodes palpable in neck or axillae. PSYCHIATRY: Alert and oriented x3. Mood and affect slightly low appearing. Neurological pupils equal. Cranial nerves grossly intact. Power and sensation grossly intact. INVESTIGATIONS: White count 14.8, hemoglobin 10.8, potassium 4.1, BUN and creatinine is normal. Accu- Cheks are noted. Chest x-ray shows right upper lobe pneumonia. ASSESSMENT: 1. Right upper lobe pneumonia suspect gram-negative organism causing sepsis on presentation. 2. Acute chronic obstructive pulmonary disease exacerbation in an ex-smoker. 3. Coronary artery disease, nonobstructive. 4. Diabetes mellitus type 2, chronically on insulin causing peripheral neuropathy and dysautonomia. 5. Essential hypertension. 6. Hyperlipidemia. 7. Chronic congestive heart failure from diastolic dysfunction from underlying coronary artery disease. 8. Right bundle branch block. 9. History of Agent [place] exposure. 10.Hard of hearing. 11.Anxiety disorder not otherwise specified. PLAN: Patient's home medications are resumed. Patient is put on nebulized bronchodilators, antibiotics in the form of ceftriaxone and Zithromax. Will add Lovenox for DVT prophylaxis. Care was discussed with the patient and at the bedside. Dr. Serrano from Pulmonary was consulted. Copy to Dr. Urrutia. MMODL / POLINA: [id number] /
[2017-02-17 17:03] LABS: Glucose,Whole Blood 138 mg/dL (75-99)
[2017-02-17] MEDS ORDERED: SYMBICORT 160-4.5 MCG INHALER INHALATION SCH (20:00)
[2017-02-17] MEDS: BUDESONIDE 1 MG/2 ML NEBU INHALATION SCH (20:56)
[2017-02-17] MEDS: FORMOTEROL FUMARATE 20 MCG/2 ML NEBU INHALATION SCH (20:58)
[2017-02-17 21:09] LABS: Glucose,Whole Blood 162 mg/dL (75-99)
[2017-02-17] MEDS: ONDANSETRON 4 MG/2 ML VIAL IVP PRN (21:32)
[2017-02-17] MEDS: AMITRIPTYLINE HCL 50 MG TAB PO SCH (22:14)
[2017-02-17] MEDS: amLODIPine 10 MG TAB PO SCH (22:15)
[2017-02-17] MEDS: INSULIN DETEMIR 100 UNIT/ML 10 ML VIAL SQ SCH (22:15)
[2017-02-17] MEDS: ATORVASTATIN 20 MG TAB PO SCH (22:15)
[2017-02-17] MEDS: ZOLPIDEM 10 MG TAB PO SCH (22:18)
[2017-02-18] MEDS: ONDANSETRON 4 MG/2 ML VIAL IVP PRN ×2 (06:51→16:02)
[2017-02-18 06:54] LABS: Glucose,Whole Blood 114 mg/dL (75-99)
[2017-02-18] MEDS: IPRATROPIUM-ALBUTEROL 3 ML NEB INHALATION SCH ×4 (07:28→20:38)
[2017-02-18] MEDS: BUDESONIDE 1 MG/2 ML NEBU INHALATION SCH ×2 (07:28→20:38)
[2017-02-18] MEDS: FORMOTEROL FUMARATE 20 MCG/2 ML NEBU INHALATION SCH ×2 (07:28→20:51)
[2017-02-18] MEDS ORDERED: NON-FORMULARY DRUG (Tiotropium 18 Mcg/Puff 1 CAP) INHALATION SCH (08:00)
[2017-02-18] MEDS: RANOLAZINE 500 MG TAB.ER.12H PO SCH ×2 (08:12→21:31)
[2017-02-18] MEDS: INSULIN ASPART 100 UNIT/ML 1 ML 10 ML VIAL SQ SCH ×3 (08:12→17:56)
[2017-02-18] MEDS: LIPASE 5,000/PROTEASE 17,000/AMYLASE 27,0000 PO SCH ×4 (08:12→21:31)
[2017-02-18] MEDS: ENOXAPARIN 40 MG/0.4 ML SYRINGE SQ SCH (08:13)
[2017-02-18] MEDS: FUROSEMIDE 20 MG TAB PO SCH (08:14)
[2017-02-18] MEDS: PANTOPRAZOLE 40 MG TABLET PO SCH (08:14)
[2017-02-18] MEDS: ASPIRIN 81 MG PO SCH (08:15)
[2017-02-18] MEDS: LOSARTAN 50 MG TAB PO SCH (08:15)
[2017-02-18] MEDS: METOPROLOL TARTRATE 50 MG TAB PO SCH ×2 (08:15→21:31)
[2017-02-18] MEDS: PREGABALIN 75 MG CAP PO SCH ×3 (08:24→21:30)
[2017-02-18 08:53] LABS: Basophils % (A) 0 %; CH 30.7; CHCM 33.3; Eosinophils # (A) 0.2 k/uL (0-0.7); Eosinophils % (A) 1 %; HCT 40.5 % (39.0-53.0); HDW 2.58; HGB 13.3 gm/dL (13.0-17.5); Luc # (Auto) 0.29; Luc % (Auto) 3; Lymphocytes # (A) 2.3 k/uL (1.0-4.8); Lymphocytes % (A) 21 %; MCH 30.3 pg (25.0-35.0); MCHC 32.8 g/dL (31.0-37.0); MCV 92.5 fL (80.0-100.0); Mean Platelet Volume 7.6; Monocytes # (A) 0.5 k/uL (0-1.0); Monocytes % (A) 5 %; Neutrophils % (A) 71 %; RBC 4.38 m/uL (4.30-5.90); RDW 13.7 % (11.5-15.5); WBC 11.3 k/uL (3.8-10.6)
[2017-02-18] MEDS ORDERED: AZITHROMYCIN 500 MG TAB PO SCH (09:00)
[2017-02-18 09:03] LABS: Anion Gap 12 mmol/L; Blood Urea Nitrogen 12 mg/dL (9-20); Calcium 9.1 mg/dL (8.4-10.2); Carbon Dioxide 21 mmol/L (22-30); Chloride 106 mmol/L (98-107); Glucose 141 mg/dL (74-99); Non-African American GFR(MDRD) >60 (>60 ml/min/1.73 sqM); Potassium 4.2 mmol/L (3.5-5.1); Sodium 139 mmol/L (137-145)
[2017-02-18] MEDS: cefTRIAXone IN SWFI 1,000 MG/10 ML SYRINGE IVP SCH (09:30)
[2017-02-18 11:40] LABS: Glucose,Whole Blood 89 mg/dL (75-99)
--- NOTE | 2017-02-18 12:15 | P.PN ---
Subjective Progress Note Date: 02/18/17 Principal diagnosis: Acute hypoxic respiratory failure related to right upper lobe pneumonia and COPD exacerbation. This is a 66-year-old male with history of underlying COPD. He presents to the emergency department with complaints of shortness of breath fever cough phlegm production. Saturations are all were in the mid 80s on oxygen. He does wear oxygen at home most of the time. The patient states he hasn't been feeling well for about 3 or 4 days and been getting worse. Lots of chest congestion coughing wheezing. The patient does feel better today. I do see him in the office for his COPD. As I recall, he has stage III disease. I looked at his chest x-ray. His chest x-ray shows evidence of right upper lobe pneumonia. This is why he is being admitted for COPD exacerbation Compu by right upper lobe pneumonia. Again the patient seemed a lot better today than he did when he first came into the hospital. His primary care physician's Dr. Bam Urrutia. On 02/18/2017 patient seen in follow-up on medical surgical floor, states his breathing is much improved today, able to tolerate ambulation in the room and in the cano without significant respiratory distress. At that time of evaluation patient is on room air, denies any dyspnea, not able to expectorate much sputum. Afebrile in the last 24 hours, blood cultures and urine culture have shown no growth since admission. He continues on empiric antibiotic coverage with Zithromax and Rocephin. Lung sounds diminished, sinus but her crackles over right middle and right upper lobe, but no wheezes, no rhonchi. Objective - Vital Signs Vital signs: Vital Signs Temp 98.8 F 02/18/17 07:00 Pulse 84 02/18/17 11:39 Resp 20 02/18/17 08:00 BP 118/68 02/18/17 07:00 Pulse Ox 95 02/18/17 07:00 Intake & Output 02/17/17 02/18/17 02/18/17 18:59 06:59 18:59 Other: Voiding Method Toilet # Voids 2 1 - Exam No acute distress, oriented 3. HEENT examination is grossly unremarkable. Mucous membranes are moist. No oral lesions. Neck supple. Full range of motion. No adenopathy or thyromegaly. Cardiovascular examination reveals a regular rhythm rate. S1-S2 normal. No S3- S4 or murmur. Lungs reveal fine is better crackles over right upper and middle lobe. Breath sounds are equal bilaterally. Breath sounds are generally diminished throughout though. Abdomen soft bowel sounds are heard. Extremities are intact. No cyanosis clubbing or edema. Skin without rash. Neurologic examination is brief but nonfocal. - Labs CBC & Chem 7: 02/18/17 07:53 02/18/17 07:53 Labs: Abnormal Lab Results - Last 24 Hours (Table) 02/17/17 02/17/17 02/17/17 Range/Units 11:45 17:01 21:05 WBC (3.8-10.6) k/uL Neutrophils # (1.3-7.7) k/uL Carbon Dioxide (22-30) mmol/L Glucose (74-99) mg/dL POC Glucose (mg/dL) 193 H 138 H 162 H (75-99) mg/dL 02/18/17 02/18/17 02/18/17 Range/Units 06:50 07:53 07:53 WBC 11.3 H (3.8-10.6) k/uL Neutrophils # 8.0 H (1.3-7.7) k/uL Carbon Dioxide 21 L (22-30) mmol/L Glucose 141 H (74-99) mg/dL POC Glucose (mg/dL) 114 H (75-99) mg/dL Microbiology - Last 24 Hours (Table) 02/17/17 02:45 Urine Culture - Final Urine,Voided 02/17/17 01:04 Blood Culture - Preliminary Blood No Growth after 24 hours Assessment and Plan Plan: Assessment: #1. Acute hypoxic respiratory failure secondary to acute COPD exacerbation and right upper lobe pneumonia, community-acquired #2. History of COPD, Gold stage III, follows with Dr. Serrano in the office #3. Hypertension #4 diabetes #6 history of congestive heart failure, unspecified Plan: Microbiology reviewed, remain negative thus far. Continue on empiric antibiotic coverage with Zithromax and Rocephin, continue Pulmicort and Perforomist and DuoNeb nebulized treatments. Patient is unable to take prednisone, but nevertheless has shown improvement since admission. Able to tolerate more activity. Continue with current medical treatment, anticipate discharge in next 24-48 hours provided patient continues to improve. I performed a history & physical examination of the patient and discussed their management with my nurse practitioner, Noemi Hernandez. I reviewed the nurse practitioner's note and agree with the documented findings and plan of care. Lung sounds are fine respiratory crackles over right lung, but no rhonchi, no wheezes. The findings and the impression was discussed with the patient. I attest to the documentation by the nurse practitioner. Time with Patient: Less than 30
[2017-02-18] MEDS: MULTIVITAMINS, THERA 1 EACH TAB PO SCH (12:44)
[2017-02-18] MEDS: CHOLECALCIFEROL 1,000 UNIT TAB PO SCH (12:44)
[2017-02-18 17:11] LABS: Glucose,Whole Blood 142 mg/dL (75-99)
--- NOTE | 2017-02-18 20:39 | P.PN ---
Progress Note - Text Progress Note Date: 02/18/17 DATE OF SERVICE: 02/18/2017 PRESENTING COMPLAINT: Fever cough short of breath. HISTORY OF PRESENT ILLNESS: 66-year-old male with a 2 bouts of pneumonia this year, for the previous 3 days patient spiked a fever of 102.4 became short of breath with chills and pleuritic chest pain when he raised. Dropped his oxygen saturation. Decreased appetite, minimal cough some wheezing admitted for the same. INTERVAL HISTORY: 02/18/2017: Patient lying in bed appears comfortable. Minimal cough, no sputum production. Breathing is improved since admission. Ambulatory within the room, encouraged patient to be up out of bed. Appetite improving eating about 50% of his meals, at the bedside. REVIEW OF SYSTEMS: Done for constitutional ,cardiovascular, GI, pulmonary with relevant findings as above. CURRENT MEDICATIONS Albuterol, budesonide, Rocephin, formoterol 20 g twice a day, PHYSICAL EXAM VITAL SIGNS: 98.8, pulse 86, respiratory rate 20, blood pressure 118/68, oxygen saturation 95 % on 3 L GENERAL APPEARANCE: Lying in bed, not in distress. EYES: Pupils equal. Conjunctiva normal. NECK: JVD not raised. Mass not palpable. RESPIRATORY: Respiratory effort normal. Lungs diminished with prolonged expiration and wheezing to auscultation. CARDIOVASCULAR: First and second sounds normal. No edema. ABDOMEN: Soft. Liver and spleen not palpable. No tenderness. No mass palpable. PSYCHIATRY: Alert and oriented x3. Mood and affect normal. INVESTIGATIONS: White blood cell count 11.3, Accu-Cheks noted. Urine culture: No growth Blood culture no growth after 24 hours ASSESSMENT: -Right upper lobe pneumonia suspect gram-negative organism causing sepsis on presentation, improving -Acute chronic obstructive pulmonary disease exacerbation and an ex-smoker, improving -Coronary artery disease, nonobstructive. -Diabetes mellitus type 2 chronically on insulin causing peripheral neuropathy and dysautonomia -Essential hypertension. -Hyperlipidemia. -Chronic congestive heart failure from diastolic dysfunction from underlying coronary artery disease. -Right bundle branch block. -History of agent orange exposure. -Hard of hearing. -Anxiety disorder not otherwise specified. PLAN: Continue empiric antibiotic coverage, continue Pulmicort, Perforomist and DuoNeb treatments. Patient unable to take prednisone but is improving. Discharge planning possibly for the next 24-48 hours area plan of care discussed at the bedside with patient and they are in agreement. Questions answered to the best my ability. We'll monitor closely. SOLE LEVELER statement: Patient was seen and examined by nurse practitioner Shantelle Eller and all elements of the case discussed with attending Dr. Garcia
[2017-02-18 20:42] LABS: Glucose,Whole Blood 172 mg/dL (75-99)
[2017-02-18] MEDS ORDERED: PROCHLORPERAZINE 5 MG TAB PO PRN (20:53)
[2017-02-18] MEDS: AMITRIPTYLINE HCL 50 MG TAB PO SCH (21:30)
[2017-02-18] MEDS: amLODIPine 10 MG TAB PO SCH (21:30)
[2017-02-18] MEDS: ZOLPIDEM 10 MG TAB PO SCH (21:30)
[2017-02-18] MEDS ORDERED: ONDANSETRON 4 MG/2 ML VIAL IVP PRN (21:30)
[2017-02-18] MEDS: ATORVASTATIN 20 MG TAB PO SCH (21:31)
[2017-02-18] MEDS: INSULIN DETEMIR 100 UNIT/ML 10 ML VIAL SQ SCH (21:34)
[2017-02-18 22:43] VITALS: RESP 16
[2017-02-18] MEDS ORDERED: ONDANSETRON 4 MG/2 ML VIAL ONE ×2 (23:00)
--- NOTE | 2017-02-19 02:23 | PN ---
PROGRESS NOTE DATE OF SERVICE: 02/18/2017 ATTENDING NOTE: Patient seen and examined by me. I discussed with my nurse practitioner, Mikadari. The patient is feeling much better. Cough, sputum has gone down. Breathing has improved. Appetite has actually got much better. EXAMINATION: Temperature 99.9, pulse 83, respirations 18, blood pressure 108/75, pulse ox 91% on room air. LUNGS: Improved air entry. CARDIOVASCULAR: First and second sounds normal. INVESTIGATIONS: White count 11.3. Blood cultures negative. ASSESSMENT: 1. Right upper lobe pneumonia, suspect gram-negative organism causing sepsis on presentation with clinical improvement. 2. Acute chronic obstructive pulmonary disease exacerbation, improving. PLAN: Care was discussed with the patient. He had some questions answered. We answered them. Patient is relatively happy about this care. He will talk to Dr. Serrano about his lung nodules. MMSAMUELL / ALIZEN: [id number] /
[2017-02-19] MEDS: FORMOTEROL FUMARATE 20 MCG/2 ML NEBU INHALATION SCH (07:32)
[2017-02-19] MEDS: BUDESONIDE 1 MG/2 ML NEBU INHALATION SCH (07:32)
[2017-02-19] MEDS: IPRATROPIUM-ALBUTEROL 3 ML NEB INHALATION SCH ×2 (07:32→11:24)
[2017-02-19 07:50] LABS: Glucose,Whole Blood 125 mg/dL (75-99)
[2017-02-19 08:06] VITALS: BP 106/61; TEMP 97.9
[2017-02-19 08:07] LABS: Basophils # (A) 0.1 k/uL (0-0.2); Basophils % (A) 1 %; CH 30.2; Eosinophils # (A) 0.2 k/uL (0-0.7); Eosinophils % (A) 2 %; HCT 37.2 % (39.0-53.0); HDW 2.47; HGB 12.6 gm/dL (13.0-17.5); Luc # (Auto) 0.35; Luc % (Auto) 4; Lymphocytes # (A) 1.8 k/uL (1.0-4.8); Lymphocytes % (A) 23 %; MCH 31.1 pg (25.0-35.0); MCHC 33.8 g/dL (31.0-37.0); Monocytes # (A) 0.6 k/uL (0-1.0); Monocytes % (A) 8 %; Neutrophils # (A) 5.1 k/uL (1.3-7.7); Neutrophils % (A) 62 %; RBC 4.04 m/uL (4.30-5.90); WBC 8.1 k/uL (3.8-10.6); WBC (Perox) 8.05
[2017-02-19 08:29] LABS: Anion Gap 10 mmol/L; Blood Urea Nitrogen 11 mg/dL (9-20); Calcium 8.6 mg/dL (8.4-10.2); Carbon Dioxide 23 mmol/L (22-30); Chloride 106 mmol/L (98-107); Glucose 120 mg/dL (74-99); Non-African American GFR(MDRD) >60 (>60 ml/min/1.73 sqM); Potassium 3.8 mmol/L (3.5-5.1); Sodium 139 mmol/L (137-145)
[2017-02-19] MEDS: INSULIN ASPART 100 UNIT/ML 1 ML 10 ML VIAL SQ SCH ×2 (09:03→13:14)
[2017-02-19] MEDS: LIPASE 5,000/PROTEASE 17,000/AMYLASE 27,0000 PO SCH ×2 (10:00→13:14)
[2017-02-19] MEDS: ASPIRIN 81 MG PO SCH (10:01)
[2017-02-19] MEDS: FUROSEMIDE 20 MG TAB PO SCH (10:01)
[2017-02-19] MEDS: LOSARTAN 50 MG TAB PO SCH (10:01)
[2017-02-19] MEDS: METOPROLOL TARTRATE 50 MG TAB PO SCH (10:01)
[2017-02-19] MEDS: cefTRIAXone IN SWFI 1,000 MG/10 ML SYRINGE IVP SCH (10:01)
[2017-02-19] MEDS: RANOLAZINE 500 MG TAB.ER.12H PO SCH (10:01)
[2017-02-19] MEDS: PREGABALIN 75 MG CAP PO SCH ×2 (10:01→15:05)
[2017-02-19] MEDS: MULTIVITAMINS, THERA 1 EACH TAB PO SCH (10:01)
[2017-02-19] MEDS: CHOLECALCIFEROL 1,000 UNIT TAB PO SCH (10:01)
[2017-02-19] MEDS: PANTOPRAZOLE 40 MG TABLET PO SCH (10:01)
[2017-02-19] MEDS: ENOXAPARIN 40 MG/0.4 ML SYRINGE SQ SCH (10:02)
[2017-02-19 11:35] VITALS: PULSE 84
--- NOTE | 2017-02-19 12:28 | P.PN ---
Subjective Progress Note Date: 02/19/17 Principal diagnosis: Acute hypoxic respiratory failure secondary to right upper lobe pneumonia and COPD exacerbation This is a 66-year-old male with history of underlying COPD. He presents to the emergency department with complaints of shortness of breath fever cough phlegm production. Saturations are all were in the mid 80s on oxygen. He does wear oxygen at home most of the time. The patient states he hasn't been feeling well for about 3 or 4 days and been getting worse. Lots of chest congestion coughing wheezing. The patient does feel better today. I do see him in the office for his COPD. As I recall, he has stage III disease. I looked at his chest x-ray. His chest x-ray shows evidence of right upper lobe pneumonia. This is why he is being admitted for COPD exacerbation Compu by right upper lobe pneumonia. Again the patient seemed a lot better today than he did when he first came into the hospital. His primary care physician's Dr. Bam Urrutia. On 02/18/2017 patient seen in follow-up on medical surgical floor, states his breathing is much improved today, able to tolerate ambulation in the room and in the cano without significant respiratory distress. At that time of evaluation patient is on room air, denies any dyspnea, not able to expectorate much sputum. Afebrile in the last 24 hours, blood cultures and urine culture have shown no growth since admission. He continues on empiric antibiotic coverage with Zithromax and Rocephin. Lung sounds diminished, sinus but her crackles over right middle and right upper lobe, but no wheezes, no rhonchi. On 02/19/2017 the patient was seen on the regular medical floor. He is awake and alert in no acute distress. He denies any worsening shortness of breath, cough or congestion. Currently afebrile. He is anxious to go home. Continue good O2 saturations in the mid 90s on 3 L/m per nasal cannula. He does have home oxygen. The cultures reveal no growth to date. Urine culture reveals no growth. Objective - Vital Signs Vital signs: Vital Signs Temp 97.9 F 02/19/17 07:00 Pulse 84 02/19/17 11:35 Resp 16 02/19/17 07:00 BP 106/61 02/19/17 07:00 Pulse Ox 94 L 02/19/17 12:00 Intake & Output 02/18/17 02/19/17 02/19/17 18:59 06:59 18:59 Intake Total 600 Balance 600 Weight 119.5 kg Intake: Oral 600 Other: Voiding Method Toilet Toilet # Voids 3 2 - Exam No acute distress, oriented 3. HEENT examination is grossly unremarkable. Mucous membranes are moist. No oral lesions. Neck supple. Full range of motion. No adenopathy or thyromegaly. Cardiovascular examination reveals a regular rhythm rate. S1-S2 normal. No S3- S4 or murmur. Lungs reveal fine is better crackles over right upper and middle lobe. Breath sounds are equal bilaterally. Breath sounds are generally diminished throughout though. Abdomen soft bowel sounds are heard. Extremities are intact. No cyanosis clubbing or edema. Skin without rash. Neurologic examination is brief but nonfocal. - Labs CBC & Chem 7: 02/19/17 07:26 02/19/17 07:26 Labs: Abnormal Lab Results - Last 24 Hours (Table) 02/18/17 02/18/17 02/18/17 Range/Units 07:53 17:05 20:39 RBC (4.30-5.90) m/uL Hgb (13.0-17.5) gm/dL Hct (39.0-53.0) % Glucose (74-99) mg/dL POC Glucose (mg/dL) 142 H 172 H (75-99) mg/dL Hemoglobin A1c 7.2 H (4.0-6.0) % 02/19/17 02/19/17 02/19/17 Range/Units 07:26 07:26 07:42 RBC 4.04 L (4.30-5.90) m/uL Hgb 12.6 L (13.0-17.5) gm/dL Hct 37.2 L (39.0-53.0) % Glucose 120 H (74-99) mg/dL POC Glucose (mg/dL) 125 H (75-99) mg/dL Hemoglobin A1c (4.0-6.0) % Microbiology - Last 24 Hours (Table) 02/17/17 01:04 Blood Culture - Preliminary Blood No Growth after 48 hours 02/17/17 02:45 Urine Culture - Final Urine,Voided Assessment and Plan Assessment: Assessment: #1. Acute hypoxic respiratory failure secondary to acute COPD exacerbation and right upper lobe pneumonia, community-acquired #2. History of COPD, Gold stage III, follows with Dr. Serrano in the office #3. Hypertension #4 diabetes #6 history of congestive heart failure, unspecified Plan: The patient was seen and evaluated by Dr. Serrano. He is cleared for discharge from the pulmonary standpoint. We'll continue his oral antibiotics in the form of Ceftin. He'll follow-up in the office in 1-2 weeks' time. We'll repeat a chest x-ray then. In his are both encouraged to call sooner with any recurrence of symptoms or other questions or concerns. I, the cosigning physician, have performed a history and physical examination on the patient. Lung sounds have few scattered rhonchi. Maintaining good O2 saturations in the 90s on 3 L/m per nasal cannula. I have discussed the assessment and plan of care with my nurse practitioner, Adelia Ferreira. I attest the above documented note as dictated by her.
[2017-02-19 12:49] LABS: Glucose,Whole Blood 242 mg/dL (75-99)
--- NOTE | 2017-02-19 16:18 | DS ---
DISCHARGE SUMMARY DATE OF ADMISSION: February 17, 2017. DATE OF DISCHARGE: February 19, 2017. FINAL DIAGNOSES: 1. Right upper lobe pneumonia suspect gram-negative organism causing sepsis present on admission. 2. Acute chronic obstructive pulmonary disease exacerbation in an ex-smoker. 3. Coronary artery disease, nonobstructive. 4. Diabetes mellitus, type 2, chronically on insulin causing peripheral neuropathy and dysautonomia. 5. Essential hypertension. 6. Hyperlipidemia. 7. Chronic congestive heart failure from diastolic dysfunction. Ejection fraction unknown, from underlying coronary artery disease. 8. Right bundle branch block. 9. History of Agent [place] exposure. 10.Hard of hearing. 11.Anxiety disorder not otherwise specified. HOSPITAL COURSE: This patient presented with COPD exacerbation, pneumonia. Responded well to nebulized bronchodilators, steroids, antibiotics. Doing much better at the time of discharge. At time of discharge, up and about. The patient is on 3 L of oxygen at home. PHYSICAL EXAMINATION: On exam lungs improved air entry. Cardiovascular first and second sounds normal. Care was discussed with the patient at the bedside. The patient is concerned about some lung nodules he has. He will be follow up with Dr. Serrano with the same. CONSULTATION: Dr. Serrano from Pulmonary medicine. DISCHARGE MEDICATIONS: 1. Ventolin HFA 1-2 puffs q.i.d. p.r.n. 2. Ventolin nebulizer 2.5 q.i.d. p.r.n. 3. Elavil 50 mg p.o. q.h.s. 4. Aspirin 81 mg p.o. daily. 5. Lipitor 20 mg q.h.s. 6. Symbicort 160/4.5, 2 puffs b.i.d. 7. Vitamin D3 2000 units p.o. daily. 8. Vitamin D2 50,000 units p.o. on Friday. 9. Lasix 20 mg p.o. daily. 10.Insulin NovoLog a.c. t.i.d. 11.Levemir 30 units subcu q.h.s. 12.Creon 95552 units q.i.d. 13.Cozaar 50 mg p.o. daily. 14.Lopressor 50 mg p.o. b.i.d. 15.Multivitamin 1 tab p.o. daily. 16.Nitrostat 0.4 sublingual q.5 p.r.n. 17.Omeprazole 20 mg p.o. with breakfast. 18.Lyrica 75 mg p.o. t.i.d. 19.Ranexa 1000 mg p.o. b.i.d. 20.Ambien 10 mg p.o. q.h.s. 21.Norvasc 10 mg p.o. q.h.s. 22.Ceftin 5 mg p.o. b.i.d. for 6 tablets. 23.DuoNeb t.i.d. Follow up with Dr. Serrano on March 06, [address]. Bam Urrutia 02/24/17. Discussion and discharge planning more than [address] Urrutia. NOBLE / ALIZEN: [id number] /
[2017-02-21] MEDS ORDERED: ERGOCALCIFEROL 50,000 UNIT CAP PO SCH (09:00)
== END 2017-02-19 15:14 | disposition home or self-care (01) | DRG 871 ==
LOC: EC 00:44 → 4MS4W 02:27
PROVIDERS: ADMIT Hospitalist; ATTEND Hospitalist
DX: A41.50 Gram-negative sepsis, unspecified (principal); J18.9 Pneumonia, unspecified organism; J96.01 Acute respiratory failure with hypoxia; I11.0 Hypertensive heart disease with heart failure; I50.32 Chronic diastolic (congestive) heart failure; E11.42 Type 2 diabetes mellitus with diabetic polyneuropathy; J44.0 Chronic obstructive pulmonary disease with (acute) lower respiratory infection; J44.1 Chronic obstructive pulmonary disease with (acute) exacerbation; I25.10 Atherosclerotic heart disease of native coronary artery without angina pectoris; G90.1 Familial dysautonomia [Riley-Day]; E78.5 Hyperlipidemia, unspecified; I45.10 Unspecified right bundle-branch block; H91.90 Unspecified hearing loss, unspecified ear; F41.9 Anxiety disorder, unspecified; K21.9 Gastro-esophageal reflux disease without esophagitis; Z77.098 Contact with and (suspected) exposure to other hazardous, chiefly nonmedicinal, chemicals; F43.10 Post-traumatic stress disorder, unspecified; Z99.81 Dependence on supplemental oxygen; Z87.891 Personal history of nicotine dependence; Z88.8 Allergy status to other drugs, medicaments and biological substances; Z79.899 Other long term (current) drug therapy; Z79.82 Long term (current) use of aspirin; Z79.51 Long term (current) use of inhaled steroids; Z91.013 Allergy to seafood; Z79.4 Long term (current) use of insulin; Z86.79 Personal history of other diseases of the circulatory system
CPT/HCPCS: 36415; 71020; 80048; 80053; 81003; 82550; 82553; 83036; 83605; 84484; 85025; 85610; 85730; 87040; 87086; 93005; 94640; 94760; 96361; 96365; 99285